=== PATIENT | male | born 1950 | race Caucasian/White ===

== ENCOUNTER 2017-03-27 10:43 | Inpatient (IN) | payer MEDICARE, OTHER ==
[~2017-03-27] VITALS: Ht 170.2 cm; Wt 125.0 kg
[2017-03-27 10:57] VITALS: BP 136/73; PULSE 83; RESP 18; TEMP 98.1; O2SAT 96
[2017-03-27 11:01] VITALS: BP 136/73; PULSE 81; RESP 22; O2SAT 96
--- NOTE | 2017-03-27 11:08 | PD ---
HPI Chief Complaint: Fall Time Seen by Provider: 11:02 Travel History International Travel<30 days: No Contact w/Intl Traveler<30days: No Traveled to known affect area: No History of Present Illness HPI 67-year-old male with history of hypertension, diabetes, presented to the emergency department for evaluation following a trip and fall that occurred approximately one hour ago. Patient was sweeping the floor when he turned, tripped, and fell landing on his right hip. He also struck his head. He did not lose consciousness. Patient reports severe right hip pain and inability to move it. This is constant. It does not radiate anywhere. Patient was unable to help himself up. Denies any nausea or vomiting. No other focal deficits or weakness. Patient has no other history to report at this time. Patient last ate around 8am today PFSH Past Medical History High Cholesterol: Yes Diabetes: Yes Patient Takes Glucophage: Yes Hypertension: Yes Social History Alcohol Use: No Tobacco Use: No Substance Use: No Allergies-Medications (Allergen,Severity, Reaction): Coded Allergies: No Known Allergies (Unverified , 03/27/17) Reported Meds & Prescriptions Reported Meds & Active Scripts Active Reported Co Q-10 (Coenzyme Q10 (Ubidecarenone)) 200 Mg Cap 200 Mg PO DAILY [Calcium Complete] 1 Tab PO DAILY Vitamin D3 (Cholecalciferol) 5,000 Unit Cap 5,000 Units PO DAILY Aspirin Adult Low Strength (Aspirin) 81 Mg Tabdr 81 Mg PO DAILY Magnesium 250 Mg Tab 250 Mg PO DAILY Rosuvastatin (Rosuvastatin Calcium) 20 Mg Tab 20 Mg PO DAILY Zetia (Ezetimibe) 10 Mg Tab 10 Mg PO DAILY Norvasc (Amlodipine Besylate) 10 Mg Tab 10 Mg PO DAILY Valsartan-Hydrochlorothiazide 160-12.5 Mg Tab 1 Tab PO DAILY Tamsulosin (Tamsulosin HCl) 0.4 Mg Cap 0.4 Mg PO HS Cymbalta DR (Duloxetine HCl) 30 Mg Capdr 90 Mg PO DAILY Take 1 capsule (30mg) with 60mg capsule for a total dose of 90mg Cymbalta DR (Duloxetine HCl) 60 Mg Capdr 90 Mg PO DAILY Take 1 capsule (60mg) with 30mg capsule for a total dose of 90mg Wellbutrin Xl 24 HR (Bupropion HCl) 150 Mg Tab 150 Mg PO DAILY Metformin (Metformin HCl) 500 Mg Tab 500 Mg PO DAILY With a meal Review of Systems Except as stated in HPI: all other systems reviewed are Neg Physical Exam Narrative GENERAL: Well-nourished elderly male patient, sitting in bed, in no acute distress. SKIN: Focused skin assessment warm/dry. Small scabbed lesions on the distal lower extremities. HEAD: Atraumatic. Normocephalic. EYES: No scleral icterus. No injection or drainage. EOMIs. PERRL ENT: No nasal bleeding or discharge. Mucous membranes pink and moist. NECK: Trachea midline. No JVD. No cervical spine tenderness to palpation. CARDIOVASCULAR: Regular rate and rhythm. No murmur appreciated. RESPIRATORY: No accessory muscle use. Coarse throughout, diminished bases, likely due to girth. Breath sounds equal bilaterally. GASTROINTESTINAL: Abdomen soft, non-tender, nondistended. Hepatic and splenic margins not palpable. MUSCULOSKELETAL: No obvious deformities. No clubbing. No cyanosis. No edema. The right lower extremity is shortened and externally rotated. Distal pulses are palpable. Cap refill is within normal limits. Patient is unable to move this hip. Attempt causes significant pain. NEUROLOGICAL: Awake and alert. No obvious cranial nerve deficits. Motor grossly within normal limits. Normal speech. PSYCHIATRIC: Appropriate mood and affect; insight and judgment normal. Data Data Last Documented VS Vital Signs Date Time Temp Pulse Resp B/P (MAP) Pulse Ox O2 Delivery O2 Flow Rate FiO2 03/27/17 11:12 86 18 136/73 (94) 97 Room Air 147/74 (98) 03/27/17 10:[address] Brain W/O Iv Contrast(Rout) (03/27/17 ) Hip, Uni(Ap&Lat) W Ap Pelvis (03/27/17 ) Electrocardiogram (03/27/17 11:05) Basic Metabolic Panel (Bmp) (03/27/17 11:05) Complete Blood Count With Diff (03/27/17 11:05) Prothrombin Time / Inr (Pt) (03/27/17 11:05) Act Partial Throm Time (Ptt) (03/27/17 11:05) Chest, Single Ap (03/27/17 11:05) Ecg Monitoring (03/27/17 11:05) Bilateral Bp Monitoring (03/27/17 11:05) Iv Access Insert/Monitor (03/27/17 11:05) Oximetry (03/27/17 11:05) Oxygen Administration (03/27/17 11:05) Sodium Chloride 0.9% Flush (Ns Flush) (03/27/17 11:15) Morphine Inj (Morphine Inj) (03/27/17 11:15) Ondansetron Inj (Zofran Inj) (03/27/17 11:15) Femur (Ap & Lat/2vws) (03/27/17 ) Hydromorphone Pf Inj (Dilaudid Pf Inj) (03/27/17 13:30) Labs Laboratory Tests Test 03/27/17 11:11 White Blood Count 8.4 TH/MM3 Red Blood Count 3.84 MIL/MM3 Hemoglobin 12.1 GM/DL Hematocrit 35.7 % Mean Corpuscular Volume 92.9 FL Mean Corpuscular Hemoglobin 31.6 PG Mean Corpuscular Hemoglobin Concent 34.0 % Red Cell Distribution Width 12.5 % Platelet Count 209 TH/MM3 Mean Platelet Volume 7.7 FL Neutrophils (%) (Auto) 75.5 % Lymphocytes (%) (Auto) 10.8 % Monocytes (%) (Auto) 8.8 % Eosinophils (%) (Auto) 4.1 % Basophils (%) (Auto) 0.8 % Neutrophils # (Auto) 6.4 TH/MM3 Lymphocytes # (Auto) 0.9 TH/MM3 Monocytes # (Auto) 0.7 TH/MM3 Eosinophils # (Auto) 0.3 TH/MM3 Basophils # (Auto) 0.1 TH/MM3 CBC Comment DIFF FINAL Differential Comment Prothrombin Time 10.6 SEC Prothromb Time International Ratio 1.0 RATIO Activated Partial Thromboplast Time 24.7 SEC Blood Urea Nitrogen 30 MG/DL Creatinine 1.68 MG/DL Random Glucose 110 MG/DL Calcium Level 9.2 MG/DL Sodium Level 139 MEQ/L Potassium Level 4.4 MEQ/L Chloride Level 104 MEQ/L Carbon Dioxide Level 26.8 MEQ/L Anion Gap 8 MEQ/L Estimat Glomerular Filtration Rate 41 ML/MIN MDM Medical Decision Making Medical Screen Exam Complete: Yes Emergency Medical Condition: Yes Medical Record Reviewed: Yes Differential Diagnosis Fracture versus sprain versus contusion versus dislocation versus minor head injury versus intracranial hemorrhage Narrative Course 67-year-old male presents to emergency department for evaluation of right hip injury following a trip and fall. Patient appears without distress. He does report significant pain of the right hip. Patient is unable to move the hip and there is shortening and external rotation of the right lower extremity. Patient also struck his head. Due to age and distracting injury, CT imaging of the brain will also be ordered. Patient is provided pain control. Last Impressions Chest X-Ray 03/27/17 1105 Signed Impressions: Service Date/Time: Monday, March 27, 2017 12:04 - CONCLUSION: No acute cardiopulmonary abnormality is identified. Mark Floyd MD Hip and Pelvis X-Ray 03/27/17 0000 Signed Impressions: Service Date/Time: Monday, March 27, 2017 12:04 - CONCLUSION: There is a displaced spiral fracture of the distal femoral diaphysis. The proximal aspect of the fracture is approximately 13 mm distal to the femoral side plate. Mark Floyd MD Head CT 03/27/17 0000 Signed Impressions: Service Date/Time: Monday, March 27, 2017 11:36 - CONCLUSION: Negative trauma study. Vasquez Flaherty MD Femur X-Ray 03/27/17 0000 Signed Impressions: Service Date/Time: Monday, March 27, 2017 12:04 - CONCLUSION: There is a displaced spiral fracture of the distal femoral diaphysis and metaphysis with displacement up to 10 mm. Mark Floyd MD Laboratory Tests Test 03/27/17 11:11 White Blood Count 8.4 TH/MM3 Red Blood Count 3.84 MIL/MM3 Hemoglobin 12.1 GM/DL Hematocrit 35.7 % Mean Corpuscular Volume 92.9 FL Mean Corpuscular Hemoglobin 31.6 PG Mean Corpuscular Hemoglobin Concent 34.0 % Red Cell Distribution Width 12.5 % Platelet Count 209 TH/MM3 Mean Platelet Volume 7.7 FL Neutrophils (%) (Auto) 75.5 % Lymphocytes (%) (Auto) 10.8 % Monocytes (%) (Auto) 8.8 % Eosinophils (%) (Auto) 4.1 % Basophils (%) (Auto) 0.8 % Neutrophils # (Auto) 6.4 TH/MM3 Lymphocytes # (Auto) 0.9 TH/MM3 Monocytes # (Auto) 0.7 TH/MM3 Eosinophils # (Auto) 0.3 TH/MM3 Basophils # (Auto) 0.1 TH/MM3 CBC Comment DIFF FINAL Differential Comment Prothrombin Time 10.6 SEC Prothromb Time International Ratio 1.0 RATIO Activated Partial Thromboplast Time 24.7 SEC Blood Urea Nitrogen 30 MG/DL Creatinine 1.68 MG/DL Random Glucose 110 MG/DL Calcium Level 9.2 MG/DL Sodium Level 139 MEQ/L Potassium Level 4.4 MEQ/L Chloride Level 104 MEQ/L Carbon Dioxide Level 26.8 MEQ/L Anion Gap 8 MEQ/L Estimat Glomerular Filtration Rate 41 ML/MIN 1253 I reviewed the x-ray imaging findings and discuss this with the patient. A call has been placed to orthopedic surgeon customer service correspondence clerk. Patient's pain is under control at this time, however he is reporting a numbness in the right distal lower extremity. Patient is able to feel me when I touch the distal affected extremity. Distal pulses remain palpable and strong. He is able to move the toes and ankle of the affected extremity. 1320 patient is requesting additional pain control at this time. I have discussed the patient with Dr. Jack Renteria's PA. Patient is to be nothing by mouth. Call has been made to the medicine team customer service correspondence clerk for admission. Diagnosis Primary Impression: Closed right femoral fracture Qualified Codes: S72.341A - Displaced spiral fracture of shaft of right femur , initial encounter for closed fracture Admitting Information Admitting Physician Requests: Admit Condition: Stable Rhianna Burnett Mar 27, 2017 11:08
[2017-03-27 11:11] VITALS: RESP 18; O2SAT 97
[2017-03-27 11:12] VITALS: BP_SYST 136; BP_SYST 147; BP_DIAS 73; BP_DIAS 74; PULSE 86; RESP 18; O2SAT 97
[2017-03-27] MEDS ORDERED: MORPHINE SULFATE 2 MG/ML INJ IV PUSH ONE (11:15)
[2017-03-27] MEDS ORDERED: ONDANSETRON HCL 4 MG/2 ML VIAL IV PUSH ONE (11:15)
[2017-03-27] MEDS: SODIUM CHLORIDE 0.9% FLUSH 10 ML FLUSH IVF PRN ×2 (11:17→22:13)
--- NOTE | 2017-03-27 11:43 | RADRPT ---
EXAM DATE/TIME: 03/27/2017 11:36 [facility] COMPARISON: No previous studies available for comparison. INDICATIONS : Cephalgia after head trauma.. RADIATION DOSE: 48.93 CTDIvol (mGy) MEDICAL HISTORY : Hypertension. Diabetes SURGICAL HISTORY : None. ENCOUNTER: Initial ACUITY: 1 day PAIN SCALE: 7/10 LOCATION: cranial TECHNIQUE: Multiple contiguous axial images were obtained of the head. Using automated exposure control and adj ustment of the mA and/or kV according to patient size, radiation dose was kept as low as reasonably a chievable to obtain optimal diagnostic quality images. DICOM format image data is available electro nically for review and comparison. FINDINGS: CEREBRUM: The ventricles are normal for age. No evidence of midline shift, mass lesion, hemorrhage or acute in farction. No extra-axial fluid collections are seen. POSTERIOR FOSSA: The cerebellum and brainstem are intact. The 4th ventricle is midline. The cerebellopontine angle i s unremarkable. EXTRACRANIAL: The visualized portion of the orbits is intact. SKULL: The calvaria is intact. No evidence of skull fracture. CONCLUSION: Negative trauma study. Vasquez Flaherty MD on March 27, 2017 at 11:40 Board Certified Radiologist. This report was verified electronically.
[2017-03-27 11:55] LABS: AUTOMATED NEUTROPHIL # 6.4 TH/MM3 (1.8-7.7); BASOPHIL # 0.1 TH/MM3 (0-0.2); BASOPHIL % 0.8 % (0.0-2.0); EOSINOPHIL # 0.3 TH/MM3 (0-0.4); EOSINOPHIL % 4.1 % (0.0-4.0); HEMATOCRIT 35.7 % (39.0-51.0); HEMOGLOBIN 12.1 GM/DL (13.0-17.0); LYMPH % 10.8 % (9.0-44.0); LYMPHOCYTE # 0.9 TH/MM3 (1.0-4.8); MEAN CELL VOLUME 92.9 FL (80.0-100.0); MEAN CORPUSCULAR HEMOGLOBIN 31.6 PG (27.0-34.0); MEAN PLATELET VOLUME 7.7 FL (7.0-11.0); MONO % 8.8 % (0.0-8.0); MONOCYTE # 0.7 TH/MM3 (0-0.9); NEUT % 75.5 % (16.0-70.0); PLATELET COUNT 209 TH/MM3 (150-450); RED BLOOD COUNT 3.84 MIL/MM3 (4.50-5.90); RED CELL DISTRIBUTION WIDTH 12.5 % (11.6-17.2); WHITE BLOOD COUNT 8.4 TH/MM3 (4.0-11.0)
[2017-03-27] MEDS ORDERED: PHENYLEPHRINE HCL 10 MG/ML VIAL IV ONE (12:00)
[2017-03-27] MEDS ORDERED: SUCCINYLCHOLINE CHLORIDE 100 MG/5 ML SYRINGE IV PUSH ONE (12:00)
[2017-03-27] MEDS ORDERED: PHENYLEPH/NS 1000 MCG/10 ML SYR IV ONE (12:00)
[2017-03-27] MEDS ORDERED: DEXAMETHASONE SOD PHOS 4 MG/ML VIAL IV ONE (12:00)
[2017-03-27] MEDS ORDERED: LIDOCAINE HCL 1% PF 5 ML SYRINGE OTHER ONE (12:00)
[2017-03-27] MEDS ORDERED: ONDANSETRON HCL 4 MG/2 ML VIAL IV ONE (12:00)
[2017-03-27] MEDS ORDERED: ePHEDrine/NS 25 MG/5 ML SYRINGE IV ONE (12:00)
[2017-03-27] MEDS ORDERED: PROPOFOL 200 MG/20 ML AMP IV ONE (12:00)
[2017-03-27] MEDS ORDERED: GLYCOPYRROLATE 1 MG/5 ML SYRINGE IV PUSH ONE (12:00)
[2017-03-27] MEDS ORDERED: ROCURONIUM INJ 50 MG/5 ML SYRINGE IV PUSH ONE (12:00)
[2017-03-27 12:06] LABS: PROTHROMBIN TIME - PATIENT 10.6 SEC (9.8-11.6)
[2017-03-27] MEDS ORDERED: EZET10 PO (12:11)
[2017-03-27] MEDS ORDERED: METF500T PO (12:11)
[2017-03-27] MEDS ORDERED: ASPI81TA16 PO (12:11)
[2017-03-27] MEDS ORDERED: CALCIUM COMPLETE PO (12:11)
[2017-03-27] MEDS ORDERED: BUPR150XL PO (12:11)
[2017-03-27] MEDS ORDERED: ROSU1TAB8 PO (12:11)
[2017-03-27] MEDS ORDERED: CHOL5000 PO (12:11)
[2017-03-27] MEDS ORDERED: TAMS0.4C4 PO (12:11)
[2017-03-27] MEDS ORDERED: VALS160T4 PO (12:11)
[2017-03-27] MEDS ORDERED: COQ1200C3 PO (12:11)
[2017-03-27] MEDS ORDERED: AMLO10 PO (12:11)
[2017-03-27] MEDS ORDERED: ESSE250T PO (12:11)
[2017-03-27] MEDS ORDERED: CYMB60CA PO (12:11)
[2017-03-27] MEDS ORDERED: CYMB30CA PO (12:11)
[2017-03-27 12:23] LABS: BICARBONATE 26.8 MEQ/L (21.0-32.0); CALCIUM 9.2 MG/DL (8.5-10.1); CREATININE 1.68 MG/DL (0.60-1.30)
--- NOTE | 2017-03-27 12:42 | RADRPT ---
EXAM DATE/TIME: 03/27/2017 12:04 [facility] COMPARISON: No previous studies available for comparison. INDICATIONS : Pain post fall today. Pre op for femur fracture. MEDICAL HISTORY : Hypercholesterolemia. Hypertension Diabetic. SURGICAL HISTORY : ORIF right hip. ENCOUNTER: Initial ACUITY: 1 day PAIN SCORE: 0/10 LOCATION: chest FINDINGS: Single AP view of the chest demonstrates cardiac silhouette size at the upper limits for normal. Mult iple EKG lines overlie the patient. Lungs are underinflated. No effusion, consolidation, or pneumotho rax is identified. The bones and soft tissues demonstrate no acute finding. CONCLUSION: No acute cardiopulmonary abnormality is identified. Mark Floyd MD on March 27, 2017 at 12:38 Board Certified Radiologist. This report was verified electronically.
--- NOTE | 2017-03-27 12:43 | RADRPT ---
EXAM DATE/TIME: 03/27/2017 12:04 [facility] COMPARISON: No previous studies available for comparison. INDICATIONS : Right hip pain post fall. MEDICAL HISTORY : Hypertension. Hypercholesterolemia. Diabetic. SURGICAL HISTORY : ORIF right hip. ENCOUNTER: Initial ACUITY: 1 day PAIN SCORE: 10/10 LOCATION: Right hip FINDINGS: AP view of the pelvis with 4 views of the right femur and hip joint demonstrate undermineralized bone s. There is a lateral proximal femoral side plate with multiple interlocking screws. In the distal fe moral diaphysis there is a displaced spiral fracture with approximately 10 mm of displacement. The fr acture line does not clearly extend to the knee joint. The proximal aspect of the fracture begins 13 mm distal to the hardware. There is moderate right hip joint osteoarthritis. Pelvic bones and left pr oximal femur demonstrate no acute finding. CONCLUSION: There is a displaced spiral fracture of the distal femoral diaphysis. The proximal aspect of the frac ture is approximately 13 mm distal to the femoral side plate. Mark Floyd MD on March 27, 2017 at 12:39 Board Certified Radiologist. This report was verified electronically.
--- NOTE | 2017-03-27 12:45 | RADRPT ---
EXAM DATE/TIME: 03/27/2017 12:04 [facility] COMPARISON: No previous studies available for comparison. INDICATIONS : Right femur pain post fall. MEDICAL HISTORY : Hypertension. Hypercholesterolemia. Diabetic. SURGICAL HISTORY : ORIF Right hip. ENCOUNTER: Initial ACUITY: 1 day PAIN SCORE: 10/10 LOCATION: Right femur. FINDINGS: 6 views of the right femur demonstrate an oblique displaced spiral fracture of the distal femoral tej physis and metaphysis. There is up to 10 mm of displacement of the distal fragment. The proximal aspe ct of the fracture originates approximately 13 mm distal to the lateral femoral sideplate. There is a lateral femoral sideplate with multiple interlocking screws. No hardware failure or loosening is augustine ntified. No soft tissue abnormality is identified. CONCLUSION: There is a displaced spiral fracture of the distal femoral diaphysis and metaphysis with displacement up to 10 mm. Mark Floyd MD on March 27, 2017 at 12:41 Board Certified Radiologist. This report was verified electronically.
[2017-03-27] MEDS ORDERED: HYDROmorphone HCL PF 2 MG/ML VIAL IV PUSH ONE (13:30)
--- NOTE | 2017-03-27 13:40 | PD ---
Data Data Last Documented VS Vital Signs Date Time Temp Pulse Resp B/P (MAP) Pulse Ox O2 Delivery O2 Flow Rate FiO2 03/27/17 11:12 86 18 136/73 (94) 97 Room Air 147/74 (98) 03/27/17 10:[address] Brain W/O Iv Contrast(Rout) (03/27/17 ) Hip, Uni(Ap&Lat) W Ap Pelvis (03/27/17 ) Electrocardiogram (03/27/17 11:05) Basic Metabolic Panel (Bmp) (03/27/17 11:05) Complete Blood Count With Diff (03/27/17 11:05) Prothrombin Time / Inr (Pt) (03/27/17 11:05) Act Partial Throm Time (Ptt) (03/27/17 11:05) Chest, Single Ap (03/27/17 11:05) Ecg Monitoring (03/27/17 11:05) Bilateral Bp Monitoring (03/27/17 11:05) Iv Access Insert/Monitor (03/27/17 11:05) Oximetry (03/27/17 11:05) Oxygen Administration (03/27/17 11:05) Sodium Chloride 0.9% Flush (Ns Flush) (03/27/17 11:15) Morphine Inj (Morphine Inj) (03/27/17 11:15) Ondansetron Inj (Zofran Inj) (03/27/17 11:15) Femur (Ap & Lat/2vws) (03/27/17 ) Hydromorphone Pf Inj (Dilaudid Pf Inj) (03/27/17 13:30) Labs Laboratory Tests Test 03/27/17 11:11 White Blood Count 8.4 TH/MM3 Red Blood Count 3.84 MIL/MM3 Hemoglobin 12.1 GM/DL Hematocrit 35.7 % Mean Corpuscular Volume 92.9 FL Mean Corpuscular Hemoglobin 31.6 PG Mean Corpuscular Hemoglobin Concent 34.0 % Red Cell Distribution Width 12.5 % Platelet Count 209 TH/MM3 Mean Platelet Volume 7.7 FL Neutrophils (%) (Auto) 75.5 % Lymphocytes (%) (Auto) 10.8 % Monocytes (%) (Auto) 8.8 % Eosinophils (%) (Auto) 4.1 % Basophils (%) (Auto) 0.8 % Neutrophils # (Auto) 6.4 TH/MM3 Lymphocytes # (Auto) 0.9 TH/MM3 Monocytes # (Auto) 0.7 TH/MM3 Eosinophils # (Auto) 0.3 TH/MM3 Basophils # (Auto) 0.1 TH/MM3 CBC Comment DIFF FINAL Differential Comment Prothrombin Time 10.6 SEC Prothromb Time International Ratio 1.0 RATIO Activated Partial Thromboplast Time 24.7 SEC Blood Urea Nitrogen 30 MG/DL Creatinine 1.68 MG/DL Random Glucose 110 MG/DL Calcium Level 9.2 MG/DL Sodium Level 139 MEQ/L Potassium Level 4.4 MEQ/L Chloride Level 104 MEQ/L Carbon Dioxide Level 26.8 MEQ/L Anion Gap 8 MEQ/L Estimat Glomerular Filtration Rate 41 ML/MIN MDM Supervised Visit with HENRI: Yes Narrative Course The history, exam, and medical decision-making in the associated mid-level provider note were completed with my assistance. I reviewed and agree with the findings presented. I attest that I had a [id number] encounter with the patient on the same day, and personally performed and documented my assessment and findings in the medical record. *My assessment and Findings: 67-year-old man, fall, femur fracture. History of hardware in the right hip. Looks well. Will admit to medicine, o orthopedics to see. Diagnosis Primary Impression: Closed right femoral fracture Qualified Codes: S72.341A - Displaced spiral fracture of shaft of right femur , initial encounter for closed fracture Condition: Stable Jc Adame MD Mar 27, 2017 13:40
[2017-03-27] MEDS ORDERED: DEXTROSE 50% IN WATER 50 ML VIAL(D50) IV PUSH PRN (14:00)
[2017-03-27] MEDS ORDERED: SODIUM CHLOR 0.9% 1000 ML INJ 1,000 ML IV SCH (14:00)
[2017-03-27] MEDS ORDERED: GLUCAGON 1 MG/ML VIAL OTHER PRN (14:00)
--- NOTE | 2017-03-27 14:12 | HHI.HP ---
[facility] Service [facility] Primary Care Physician No Primary Care Physician Admission Diagnosis r femur fracture Diagnoses: (1) Closed right femoral fracture Diagnosis: Principal Chief Complaint: pain to the right lower extremity after a fall Travel History International Travel<30 Days: No Contact w/Intl Traveler <30 Da: No Traveled to Known Affected Are: No History of Present Illness patient is a 67 y/o male who presented to ER after he fell earlier. he says that he was sweeping the floor when he tripped and fell-after which he started to have worsening pain to the right lower extremity. he denies any prodromal symptoms before the fall and there's no report of syncopal episode. he denies any abdominal pain, chest pain, nausea or dizziness. Review of Systems Musculoskeletal: COMPLAINS OF: Joint pain (right leg) Past Family Social History Past Medical History diabetes mellitus/ hypertension Past Surgical History appendectomy/ hip surgery. Reported Medications Co Q-10 (Coenzyme Q10 (Ubidecarenone)) 200 Mg Cap 200 Mg PO DAILY [Calcium Complete] 1 Tab PO DAILY Vitamin D3 (Cholecalciferol) 5,000 Unit Cap 5,000 Units PO DAILY Aspirin Adult Low Strength (Aspirin) 81 Mg Tabdr 81 Mg PO DAILY Magnesium 250 Mg Tab 250 Mg PO DAILY Rosuvastatin (Rosuvastatin Calcium) 20 Mg Tab 20 Mg PO DAILY Zetia (Ezetimibe) 10 Mg Tab 10 Mg PO DAILY Norvasc (Amlodipine Besylate) 10 Mg Tab 10 Mg PO DAILY Valsartan-Hydrochlorothiazide 160-12.5 Mg Tab 1 Tab PO DAILY Tamsulosin (Tamsulosin HCl) 0.4 Mg Cap 0.4 Mg PO HS Cymbalta DR (Duloxetine HCl) 30 Mg Capdr 90 Mg PO DAILY Take 1 capsule (30mg) with 60mg capsule for a total dose of 90mg Cymbalta DR (Duloxetine HCl) 60 Mg Capdr 90 Mg PO DAILY Take 1 capsule (60mg) with 30mg capsule for a total dose of 90mg Wellbutrin Xl 24 HR (Bupropion HCl) 150 Mg Tab 150 Mg PO DAILY Metformin (Metformin HCl) 500 Mg Tab 500 Mg PO DAILY With a meal Allergies: Coded Allergies: No Known Allergies (Unverified , 03/27/17) Active Ordered Medications Inpatient Medications Dextrose (D50w (Vial) Inj) 50 ml UNSCH PRN IV PUSH HYPOGLYCEMIA-SEE COMMENTS; Start 03/27/17 at 14:00 Glucagon (Glucagon Inj) 1 mg UNSCH PRN OTHER HYPOGLYCEMIA-SEE COMMENTS; Start 03/27/17 at 14:00 Hydromorphone HCl (Dilaudid Pf Inj) 1 mg ONCE ONCE IV PUSH Last administered on 03/27/17at 13:27; Start 03/27/17 at 13:30; Stop 03/27/17 at 13:31; Status DC Insulin Aspart (NovoLOG SUPPLEMENTAL SCALE) 1 ACHS SLIDING SCALE SQ ; Start 03/27/17 at 17:00 Morphine Sulfate (Morphine Inj) 4 mg ONCE ONCE IV PUSH Last administered on 03/27/17at 11:17; Start 03/27/17 at 11:15; Stop 03/27/17 at 11:16; Status DC Ondansetron HCl (Zofran Inj) 4 mg ONCE ONCE IV PUSH Last administered on at 11:17; Start 03/27/17 at 11:15; Stop 03/27/17 at 11:16; Status DC Sodium Chloride 1,000 ml @ 100 mls/hr Q10H IV ; Start 03/27/17 at 14:00 Sodium Chloride (NS Flush) 2 ml UNSCH PRN IVF FLUSH AFTER USING IV ACCESS Last administered on 03/27/17at 11:17; Start 03/27/17 at 11:15 Family History not relevant to this admission. Social History no smoking or drinking. Physical Exam Vital Signs Vital Signs Date Time Temp Pulse Resp B/P (MAP) Pulse Ox O2 Delivery O2 Flow Rate FiO2 03/27/17 11:12 86 18 136/73 (94) 97 Room Air 147/74 (98) 03/27/17 11:11 97 Room Air 03/27/17 11:11 18 97 Room Air 03/27/17 11:01 81 22 136/73 (94) 96 Room Air 03/27/17 11:01 76 22 96 Room Air 03/27/17 10:57 98.1 83 18 136/73 (94) 96 Physical Exam GENERAL: This is a well-nourished, well-developed patient, in no apparent distress. SKIN: No rashes, ecchymoses or lesions. Cool and dry. HEAD: Atraumatic. Normocephalic. No temporal or scalp tenderness. EYES: Pupils equal round and reactive. Extraocular motions intact. No scleral icterus. No injection or drainage. ENT: Nose without bleeding, purulent drainage or septal hematoma. Throat without erythema, tonsillar hypertrophy or exudate. Uvula midline. Airway patent. NECK: Trachea midline. No JVD or lymphadenopathy. Supple, nontender, no meningeal signs. CARDIOVASCULAR: Regular rate and rhythm without murmurs, gallops, or rubs. RESPIRATORY: Clear to auscultation. Breath sounds equal bilaterally. No wheezes , rales, or rhonchi. GASTROINTESTINAL: Abdomen soft, non-tender, nondistended. No hepato-splenomegaly , or palpable masses. No guarding. MUSCULOSKELETAL: Extremities without clubbing, cyanosis, or edema. No joint tenderness, effusion, or edema noted. No calf tenderness. Negative Homans sign bilaterally. NEUROLOGICAL: Awake and alert. Cranial nerves II through XII intact. Motor and sensory grossly within normal limits. Five out of 5 muscle strength in all muscle groups. Normal speech. Laboratory Laboratory Tests Test 03/27/17 11:11 White Blood Count 8.4 Red Blood Count 3.84 Hemoglobin 12.1 Hematocrit 35.7 Mean Corpuscular Volume 92.9 Mean Corpuscular Hemoglobin 31.6 Mean Corpuscular Hemoglobin Concent 34.0 Red Cell Distribution Width 12.5 Platelet Count 209 Mean Platelet Volume 7.7 Neutrophils (%) (Auto) 75.5 Lymphocytes (%) (Auto) 10.8 Monocytes (%) (Auto) 8.8 Eosinophils (%) (Auto) 4.1 Basophils (%) (Auto) 0.8 Neutrophils # (Auto) 6.4 Lymphocytes # (Auto) 0.9 Monocytes # (Auto) 0.7 Eosinophils # (Auto) 0.3 Basophils # (Auto) 0.1 CBC Comment DIFF FINAL Differential Comment Prothrombin Time 10.6 Prothromb Time International Ratio 1.0 Activated Partial Thromboplast Time 24.7 Blood Urea Nitrogen 30 Creatinine 1.68 Random Glucose 110 Calcium Level 9.2 Sodium Level 139 Potassium Level 4.4 Chloride Level 104 Carbon Dioxide Level 26.8 Anion Gap 8 Estimat Glomerular Filtration Rate 41 Result Diagram: 03/27/17 1111 03/27/17 1111 Imaging Last Impressions Chest X-Ray 03/27/17 1105 Signed Impressions: Service Date/Time: Monday, March 27, 2017 12:04 - CONCLUSION: No acute cardiopulmonary abnormality is identified. Mark Floyd MD Hip and Pelvis X-Ray 03/27/17 0000 Signed Impressions: Service Date/Time: Monday, March 27, 2017 12:04 - CONCLUSION: There is a displaced spiral fracture of the distal femoral diaphysis. The proximal aspect of the fracture is approximately 13 mm distal to the femoral side plate. Mark Floyd MD Head CT 03/27/17 0000 Signed Impressions: Service Date/Time: Monday, March 27, 2017 11:36 - CONCLUSION: Negative trauma study. Vasquez Flaherty MD Femur X-Ray 03/27/17 0000 Signed Impressions: Service Date/Time: Monday, March 27, 2017 12:04 - CONCLUSION: There is a displaced spiral fracture of the distal femoral diaphysis and metaphysis with displacement up to 10 mm. Mark Floyd MD EKG; sinus rhythm with RBBB and occasional PVC's. Caprini VTE Risk Assessment Caprini VTE Risk Assessment: Mod/High Risk (score >= 2) Caprini Risk Assessment Model Point Value = 1 Point Value = 2 Point Value = 3 Point Value = 5 Age 41-60 Minor surgery BMI > 25 kg/m2 Swollen legs Varicose veins or History of unexplained or recurrent spontaneous Oral contraceptives or hormone replacement Sepsis (< 1 month) Serious lung disease, including pneumonia (< 1 month) Abnormal pulmonary function Acute myocardial infarction Congestive heart failure (< 1 month) History of inflammatory bowel disease Medical patient at bed rest Age 61-74 Arthroscopic surgery Major open surgery (> 45 min) Laparoscopic surgery (> 45 min) Malignancy Confined to bed (> 72 hours) Immobilizing plaster cast Central venous access Age >= 75 History of VTE Family history of VTE Factor V Leiden Prothrombin [id number] Lupus anticoagulant Anticardiolipin antibodies Elevated serum homocysteine Heparin-induced thrombocytopenia Other congenital or acquired thrombophilia Stroke (< 1 month) Elective arthroplasty Hip, pelvis, or leg fracture Acute spinal cord injury (< 1 month) Prophylaxis Regimen Total Risk Factor Score Risk Level Prophylaxis Regimen 0-1 Low Early ambulation 2 Moderate Order ONE of the following: *Sequential Compression Device (SCD) *Heparin 5000 units SQ BID 3-4 Higher Order ONE of the following medications: *Heparin 5000 units SQ TID *Enoxaparin/Lovenox 40 mg SQ daily (WT < 150 kg, CrCl > 30 mL/min) *Enoxaparin/Lovenox 30 mg SQ daily (WT < 150 kg, CrCl > 10-29 mL/min) *Enoxaparin/Lovenox 30 mg SQ BID (WT < 150 kg, CrCl > 30 mL/min) AND/OR *Sequential Compression Device (SCD) 5 or more Highest Order ONE of the following medications: *Heparin 5000 units SQ TID (Preferred with Epidurals) *Enoxaparin/Lovenox 40 mg SQ daily (WT < 150 kg, CrCl > 30 mL/min) *Enoxaparin/Lovenox 30 mg SQ daily (WT < 150 kg, CrCl > 10-29 mL/min) *Enoxaparin/Lovenox 30 mg SQ BID (WT < 150 kg, CrCl > 30 mL/min) AND *Sequential Compression Device (SCD) Assessment and Plan Assessment and Plan A/P - fall with right femoral fracture NPO for now- consulted ortho- continue pain control. -diabetes mellitus; accu-check with SSI- hold metformin. -hypertension; resume norvasc- hold Valsartan/HCTZ- will monitor and adjust the regimen as needed. -renal insufficiency with unknown duration- start on IV fluid and monitor the renal functio; BMP tomorrow. -DVT prophylaxis; pending ortho evaluation/ intervention. Discussed Condition With ER physician and the patient. Physician Certification 2 Midnight Certification Type: Admission for Inpatient Services Order for Inpatient Services The services are ordered in accordance with Medicare regulations or non- Medicare payer requirements, as applicable. In the case of services not specified as inpatient-only, they are appropriately provided as inpatient services in accordance with the 2-midnight benchmark. Estimated LOS (days): 3 days is the estimated time the patient will need to remain in the hospital, assuming treatment plan goals are met and no additional complications. Post-Hospital Plan: Not yet determined Problem Qualifiers (1) Closed right femoral fracture: Qualified Codes: S72.341A - Displaced spiral fracture of shaft of right femur, initial encounter for closed fracture Gucci Isaac MD Mar 27, 2017 14:12
[2017-03-27] MEDS ORDERED: ACETAMINOPHEN 325 MG TAB PO PRN (14:15)
[2017-03-27] MEDS ORDERED: ONDANSETRON HCL 4 MG/2 ML VIAL IV PUSH PRN (14:15)
[2017-03-27] MEDS ORDERED: MORPHINE SULFATE 2 MG/ML INJ IV PUSH PRN (14:15)
[2017-03-27] MEDS ORDERED: GENTAMICIN SULFATE 80 MG/2 ML VIAL ONE (14:55)
[2017-03-27] MEDS ORDERED: ACETAMINOPHEN 1000 MG/100 ML 100 ML IV ONE (14:57)
[2017-03-27] MEDS ORDERED: ARTIFICIAL TEARS OPTH OINT 3.5 APPLIC/3.5 GM TUBO ONE (15:09)
[2017-03-27] MEDS ORDERED: VANCOMYCIN HCL 1000 MG VIAL ONE (15:56)
[2017-03-27] MEDS ORDERED: ceFAZolin 2 GM PREMIX 50 ML ONE (15:56)
--- NOTE | 2017-03-27 16:29 | MB ---
cc: LEE BELLO M.D. DATE OF CONSULTATION: 03/27/2017 REASON FOR CONSULTATION: Right distal femoral shaft fracture. HISTORY The patient is a 67-year-old man who came to the emergency room after having a mechanical fall. The patient was sweeping the floor and he tripped and fell, he was unable to ambulate had severe pain and deformity about the leg. The patient denies any numbness or tingling raining down the leg. He was admitted to the hospital after having x-ray showing a distal femur fracture. Of note the patient had a previous right hip fracture which was treated 30 years ago with an open reduction internal fixation. The patient was able to ambulate well prior to this new injury. The patient denies any loss of consciousness. PAST MEDICAL HISTORY: Medical history is positive a diabetes hypertension. PAST SURGICAL HISTORY As above plus appendectomy. MEDICATIONS See the chart note that he does take Aspirin and he takes oral diabetic medicines. ALLERGIES NO KNOWN DRUG ALLERGIES SOCIAL HISTORY He does not smoke or drink alcohol. FAMILY HISTORY Noncontributory. PHYSICAL EXAMINATION: VITAL SIGNS: The patient's temperature is 98.1, pulse is 83, respirations 18, blood pressure 136/73. IN GENERAL: The patient is awake, alert and oriented x3. He is in very minimal distress. He has normal affect insight and judgment. Patient is a morbidly obese. HEAD, EYES, EARS, NOSE, AND THROAT: His head is atraumatic. Oropharynx is moist. Extraocular muscles intact. HEART: Heart is regular rate and rhythm LUNGS: Has normal symmetric chest wall elevation with no dyspnea or audible wheeze. BACK: The patient's back is nontender. JOINTS: Bilateral shoulders, elbows and wrist have good range of motion actively. ABDOMEN: Soft and nontender with obesity. EXTREMITIES: The right lower extremity shortened and rotated. There is mild to moderate swelling of the thigh as a well-healed lateral incision. He has excoriations of the bilateral lower extremities of at least a moderate degree which were multiple which he describes from scratching due being up in cold weather recently he can move the toes on both feet actively with normal sensation about both feet is 2+ dorsalis pedis pulse, bilateral lower extremities. LABORATORY FINDINGS: Laboratory studies shows a white cell count of 8.4, hematocrit 35.7, platelets of 209, creatinine is elevated at 1.68, glucose 110. INR yesterday was 1.0. RADIOLOGIC: X-rays reviewed the images and reports on the right femur in the right hip shows the patient has a blade plate to for a previous healed subtrochanteric femur fracture with multiple screws going into a long plate laterally. There is a long oblique fracture going just distal from the tip of the plate down towards the supracondylar region. There is significant rotation and displacement. There was a head CT which had looked at the report which showed no acute trauma. IMPRESSION: 1. Right distal femoral shaft fracture rotated and displaced, trauma periprosthetic. 2. Right hip previous subtrochanteric femur fracture with a well-healed with a long blade plate going down the femoral shaft. 3. Morbid obesity with history of diabetes. DECISION MAKING: We discussed diagnosis in detail. We discussed treatment options. I do feel that urgent surgical management is necessary nonoperative management will have significant morbidity and even potentially mortality associated with it without surgery. The patient would likely not be able to walk functionally again the patient would have very high risk of developing DVT, pulmonary embolus, bed sores, pneumonia and . I did discuss with the patient that surgery is fairly complicated given the fact that he has this previous hardware in there, it really does limited as far as options for surgery and does make surgery more complicated in that may need to remove hardware that was placed previously. Which could be, some of the screws or all the screws or potentially all the screws and the plate and the plate has been in now for 30 years. We discussed that there are times a fixation including intramedullary maverick fixation versus further plates and screws and will make this determination of exactly how to proceed intraoperatively. The patient says that the risks of surgery include on to injury levels bleeding, infection, infection, inability to ambulate, loss range of motion associated joints, DVT, pulmonary was pneumonia and . The patient was performed with surgical management. All questions have been answered. MD BENJAMÍN Zhou/candice /3:57 PM /4:16 PM
[2017-03-27] MEDS ORDERED: TRANEXAMIC ACID INJ 1,000 MG/10 ML AMP ONE ×2 (16:38→16:41)
[2017-03-27] MEDS ORDERED: ALBUMIN 5% INJ 500 ML IV ONE (18:11)
[2017-03-27] MEDS ORDERED: SUGAMMADEX SODIUM 200 MG/2 ML VIAL IV PUSH ONE (18:13)
[2017-03-27] MEDS ORDERED: DEXT 5%-NACL 0.45% 1000 ML INJ 1,000 ML IV SCH (18:59)
[2017-03-27] MEDS ORDERED: Post-op Orders (for Pharmacy) XX ONE (19:00)
[2017-03-27] MEDS ORDERED: diphenhydrAMINE HCL 25 MG CAP PO PRN (19:00)
[2017-03-27] MEDS ORDERED: NALOXONE HCL 0.4 MG/ML AMP IV PUSH PRN (19:00)
[2017-03-27] MEDS ORDERED: MISCELLANEOUS NURSING INFORMATION XX PRN (19:00)
[2017-03-27] MEDS ORDERED: MISCELLANEOUS PHARMACY INFORMATION XX ONE (19:00)
[2017-03-27] MEDS ORDERED: ONDANSETRON HCL 4 MG/2 ML VIAL IVP PRN (19:00)
--- NOTE | 2017-03-27 19:10 | PD.OP ---
cc: Rj Santiago MD Operative Report Date of Surgery: Mar 27, 2017 Preoperative Diagnosis: Right femur distal supracondylar femur fracture, extra-articular. Right femur retained hardware, long blade plate for healed subtrochanteric fracture Postoperative Diagnosis: Same Procedure: Right distal femur supracondylar femur open reduction and internal fixation plus intramedullary stabilization. Right femur removal of implant deep. Anesthesia: Gen. Surgeon: Rj Santiago Outsole Cementer Machine(s): MARY Mota The surgical procedure was assisted by my Advanced Registered Nurse Practitioner. My OPERATORS SCHOOL MANAGER presence was necessary throughout this case for the manipulation and positioning of the surgical extremity. My OPERATORS SCHOOL MANAGER was assisting me throughout the duration of this procedure. The skill set of an Advance Registered Nurse Practitioner was medically necessary to complete this procedure. During the surgical case, the radiologic technician was working at the back table and the Advance Registered Nurse Practitioner was directly assisting me. Operation and Findings: Implants: Synthes tibal nail, size: Synthes, retrograde femur nail 12 x 340. Synthes 4 cables Estimated blood loss: 600 cc The patient received intravenous vancomycin and Ancef. After the appropriate anesthesia was administered, the patient was prepped and draped in the supine position in the usual sterile fashion. Skin assessment showed several excoriations around the lateral aspect of the femur. There was mild to moderate swelling noted to the leg, with no evidence of compartment syndrome. Lateral incision was made on the femur which was then incorporated into the previous lateral incision more proximally. We dissected down to deep fascia and incised the iliotibial band longitudinally. We identified the vastus lateralis muscle which was reflected anteriorly. There was quite a bit of hemorrhage and hematoma in the distal vastus lateralis. We identified the fracture site and cleaned off hematoma. We identified the helical blade plate laterally, more proximally. There was some osseous overgrowth which was removed. We irrigated the fracture. We anatomically reduced the fracture. We placed a clamp to hold the anatomic. We then placed 3 Synthes cables around the fracture which was oblique in nature which held the fracture in anatomic. Note that the supracondylar femur fracture was extra-articular. We decided that we needed to augment this fixation with intramedullary device. We therefore removed 7 deep screws from the blade plate. All of the screws had excellent purchase. No signs of infection was noted about the previous surgery. We made standard incision through the skin over the knee and then incised longitudinally through the patella tendon and the capsule. We placed a threaded guidewire distally through the supracondylar region. We distally reamed. We then placed a ball-tipped guidewire up to the proximal femur. We sequentially reamed up to a size 13 to get good cortical chatter. We measured the nail to make sure that the tip of it would be below the previous plate plate. We then placed the nail into position and buried this to the appropriate level. We secured the nail distally with 3 screws. Proximally we secured the nail with a single screw using perfect [place] technique. We decided to place a cerclage wire around the blade plate construct. We did this because we removed all of the screws that had locked it to the femur. When we had examined the blade plate there was no instability whatsoever. But, we thought that by adding a cerclage wire this fluid significantly reduce the chance of that hardware loosening in the future. We irrigated the wounds including intra-articular at the knee. We placed a deep drain in the lateral aspect of the femur. This was deep to the muscle. We closed the patellar tendon with 0 Vicryl. We closed the IT band with #1 Vicryl. We closed the remaining skin with 2-0 Vicryl and yecenia. Dressings were applied. The postoperative plan is for toe-touch weightbearing on the right lower extremity. Chemical DVT prophylaxis will be performed with Lovenox followed by aspirin. Rj Santiago MD Mar 27, 2017 19:10
[2017-03-27] MEDS ORDERED: ASPI-146 PO (19:12)
[2017-03-27] MEDS ORDERED: ENOX40IN SQ (19:12)
[2017-03-27] MEDS ORDERED: HYDR-3583 PO (19:12)
--- NOTE | 2017-03-27 19:13 | RADRPT ---
EXAM DATE/TIME: 03/27/2017 18:29 [facility] COMPARISON: FEMUR RIGHT (AP & LAT/2VWS), March 27, 2017, 12:04. EXTERNAL COMPARISON : INDICATIONS : ORIF rt femur. MEDICAL HISTORY : None. SURGICAL HISTORY : None. ENCOUNTER: Subsequent ACUITY: 1 day PAIN SCORE: Non-responsive. LOCATION: Right Femur FINDINGS: The patient is status post ORIF of right femur fracture with hardware in good position. CONCLUSION: Status post ORIF of right femur fracture with hardware in good position. Pj Merchant MD on March 27, 2017 at 19:09 Board Certified Radiologist. This report was verified electronically.
[2017-03-27] MEDS ORDERED: ENOX40P SQ (19:14)
[2017-03-27] MEDS ORDERED: DO NOT ADM ANY ANTICOAGULANT DRUGS PRN (20:02)
[2017-03-27] MEDS ORDERED: MIDAZOLAM HCL 2 MG/2 ML VIAL ONE (20:13)
[2017-03-27] MEDS ORDERED: *morphine SULFATE 4 MG/ML PERIprocedure ONLY ONE (20:59)
[2017-03-27] MEDS: INSULIN ASPART SUPPLEMENTAL SCALE SQ SCH (21:00)
[2017-03-27] MEDS: SODIUM CHLOR 0.9% 1000 ML INJ 1,000 ML IV SCH (21:30)
[2017-03-27 21:40] VITALS: BP 103/53; PULSE 74; RESP 18; TEMP 97.1; O2SAT 94
[2017-03-27] MEDS: TAMSULOSIN HCL 0.4 MG CAP PO SCH (22:13)
[2017-03-27] MEDS: ACETAMINOPHEN/HYDROcodone 325 MG/10 MG TAB PO PRN (22:13)
[2017-03-27] MEDS: DOCUSATE SODIUM 50 MG/SENNA 8.6 MG TAB PO SCH (22:13)
[2017-03-28 00:05] VITALS: BP 107/59; PULSE 88; RESP 18; TEMP 97.4; O2SAT 94
[2017-03-28] MEDS: ACETAMINOPHEN/HYDROcodone 325 MG/10 MG TAB PO PRN ×3 (03:38→18:10)
[2017-03-28 04:00] VITALS: BP 115/63; PULSE 78; RESP 18; TEMP 97.4; O2SAT 96
[2017-03-28] MEDS: SODIUM CHLOR 0.9% 1000 ML INJ 1,000 ML IV SCH ×2 (05:02→18:00)
[2017-03-28 05:35] LABS: AUTOMATED NEUTROPHIL # 10.8 TH/MM3 (1.8-7.7); BASOPHIL % 0.3 % (0.0-2.0); HEMATOCRIT 25.7 % (39.0-51.0); HEMOGLOBIN 8.7 GM/DL (13.0-17.0); LYMPHOCYTE # 0.5 TH/MM3 (1.0-4.8); MEAN CELL VOLUME 93.4 FL (80.0-100.0); MEAN CORPUSCULAR HEMOGLOBIN 31.6 PG (27.0-34.0); MEAN CORPUSCULAR HGB CONC 33.8 % (32.0-36.0); MONO % 5.6 % (0.0-8.0); MONOCYTE # 0.7 TH/MM3 (0-0.9); NEUT % 90.1 % (16.0-70.0); PLATELET COUNT 171 TH/MM3 (150-450); RED BLOOD COUNT 2.76 MIL/MM3 (4.50-5.90); RED CELL DISTRIBUTION WIDTH 12.5 % (11.6-17.2)
[2017-03-28 05:53] LABS: BICARBONATE 27.7 MEQ/L (21.0-32.0); CALCIUM 7.7 MG/DL (8.5-10.1); CREATININE 1.78 MG/DL (0.60-1.30)
[2017-03-28 08:00] VITALS: BP 111/62; PULSE 83; RESP 16; TEMP 98.3; O2SAT 96
[2017-03-28] MEDS: INSULIN ASPART SUPPLEMENTAL SCALE SQ SCH ×4 (08:00→21:11)
[2017-03-28] MEDS: DULoxetine HCl DR 30 MG CAP PO SCH (08:30)
[2017-03-28] MEDS: buPROPion HCL 150 MG SUSTAINED RELEASE TAB PO SCH ×2 (08:30→20:56)
[2017-03-28] MEDS: ATORVASTATIN 40 MG TAB PO SCH (08:30)
[2017-03-28] MEDS: MULTIVITAMINS/MINERALS THERAPEUTIC TAB PO SCH (08:30)
[2017-03-28] MEDS: DOCUSATE SODIUM 50 MG/SENNA 8.6 MG TAB PO SCH ×2 (08:30→20:56)
[2017-03-28] MEDS: CHOLECALCIFEROL (VIT D3) 5000 UNIT CAP PO SCH (08:31)
[2017-03-28] MEDS: EZETIMIBE 10 MG TAB PO SCH (08:31)
[2017-03-28] MEDS ORDERED: DULoxetine HCl DR 60 MG CAP PO SCH (09:00)
[2017-03-28] MEDS ORDERED: buPROPion HCL 150 MG EXTENDED RELEASE TAB PO SCH (09:00)
--- NOTE | 2017-03-28 09:36 | PD.ORT.PN ---
Subjective Subjective Remarks min pain, sitting in chair comfortably Objective Vitals Vital Signs Date Time Temp Pulse Resp B/P (MAP) Pulse Ox O2 Delivery O2 Flow Rate FiO2 03/28/17 04:38 20 03/28/17 04:00 97.4 78 18 115/63 (80) 96 03/28/17 00:05 97.4 88 18 107/59 (75) 94 03/27/17 23:13 20 03/27/17 21:40 97.1 74 18 103/53 (70) 94 03/27/17 21:15 72 17 109/56 (73) 100 Nasal Cannula 2 03/27/17 21:00 72 13 107/61 (76) 100 Nasal Cannula 2 03/27/17 20:45 70 15 108/62 (77) 100 Nasal Cannula 4 03/27/17 20:30 70 16 99/59 (72) 98 Nasal Cannula 4 03/27/17 20:15 71 15 83/50 (61) 94 Nasal Cannula 4 03/27/17 20:05 98.2 74 12 95/51 (66) 98 Nasal Cannula 4 03/27/17 15:51 97.5 77 18 123/66 (85) 95 03/27/17 15:34 03/27/17 11:12 86 18 136/73 (94) 97 Room Air 147/74 (98) 03/27/17 11:11 97 Room Air 03/27/17 11:11 18 97 Room Air 03/27/17 11:01 81 22 136/73 (94) 96 Room Air 03/27/17 11:01 76 22 96 Room Air 03/27/17 10:57 98.1 83 18 136/73 (94) 96 I/O 03/27/17 03/27/17 03/27/17 03/28/17 03/28/17 03/28/17 07:00 15:00 23:00 07:00 15:00 23:00 Intake Total 2575 ml 933 ml Output Total 1230 ml 830 ml Balance 1345 ml 103 ml Intake Oral 75 ml IV Total 933 ml Albumin 500 ml Other 2000 ml Output Urine Total 600 ml 750 ml Drainage Total 30 ml 80 ml Estimated Blood Loss 600 ml Bladder Scan Volume Amount 291 ml # Voids 0 # Bowel Movements 0 Result Diagram: 03/28/17 0425 03/28/17 0425 Other Results Laboratory Tests Test 03/27/17 11:11 Prothromb Time International Ratio 1.0 RATIO Prothrombin Time 10.6 SEC (9.8-11.6) Imaging Last 24 hours Impressions Chest X-Ray 03/27/17 1105 Signed Impressions: Service Date/Time: Monday, March 27, 2017 12:04 - CONCLUSION: No acute cardiopulmonary abnormality is identified. Mark Floyd MD Objective Remarks R leg dressed (clean) and CKS applied moves all toes well, BCR *5 +bloody drainage from drain Assessment & Plan Assessment and Plan POD #1 s/p R femur ORIF/IMN TTWB RLE Lovenox cont drain until tomorrow dressing change tomorrow Likely SNF 2/4 or 2/ Rj Santiago MD Mar 28, 2017 09:36
--- NOTE | 2017-03-28 10:21 | HHI.PR ---
Subjective Remarks Patient seen and examined. AFVSS. He is status post Right femur ORIF/IMN. He is sitting in the chair and reports that the pain is tolerable. Bulb drain in place and draining serosanguineous fluid. He has no issues or complaints at this time. Objective Vitals Vital Signs Date Time Temp Pulse Resp B/P (MAP) Pulse Ox O2 Delivery O2 Flow Rate FiO2 03/28/17 08:00 98.3 83 16 111/62 (78) 96 03/28/17 04:38 20 03/28/17 04:00 97.4 78 18 115/63 (80) 96 03/28/17 00:05 97.4 88 18 107/59 (75) 94 03/27/17 23:13 20 03/27/17 21:40 97.1 74 18 103/53 (70) 94 03/27/17 21:15 72 17 109/56 (73) 100 Nasal Cannula 2 03/27/17 21:00 72 13 107/61 (76) 100 Nasal Cannula 2 03/27/17 20:45 70 15 108/62 (77) 100 Nasal Cannula 4 03/27/17 20:30 70 16 99/59 (72) 98 Nasal Cannula 4 03/27/17 20:15 71 15 83/50 (61) 94 Nasal Cannula 4 03/27/17 20:05 98.2 74 12 95/51 (66) 98 Nasal Cannula 4 03/27/17 15:51 97.5 77 18 123/66 (85) 95 03/27/17 15:34 03/27/17 11:12 86 18 136/73 (94) 97 Room Air 147/74 (98) 03/27/17 11:11 97 Room Air 03/27/17 11:11 18 97 Room Air 03/27/17 11:01 81 22 136/73 (94) 96 Room Air 03/27/17 11:01 76 22 96 Room Air 03/27/17 10:57 98.1 83 18 136/73 (94) 96 I/O 03/27/17 03/27/17 03/27/17 03/28/17 03/28/17 03/28/17 07:00 15:00 23:00 07:00 15:00 23:00 Intake Total 2575 ml 933 ml Output Total 1230 ml 830 ml Balance 1345 ml 103 ml Intake Oral 75 ml IV Total 933 ml Albumin 500 ml Other 2000 ml Output Urine Total 600 ml 750 ml Drainage Total 30 ml 80 ml Estimated Blood Loss 600 ml Bladder Scan Volume Amount 291 ml # Voids 0 # Bowel Movements 0 Result Diagram: 03/28/17 0425 03/28/17 0425 Imaging Last Impressions Chest X-Ray 03/27/17 1105 Signed Impressions: Service Date/Time: Monday, March 27, 2017 12:04 - CONCLUSION: No acute cardiopulmonary abnormality is identified. Mark Floyd MD Hip and Pelvis X-Ray 03/27/17 0000 Signed Impressions: Service Date/Time: Monday, March 27, 2017 12:04 - CONCLUSION: There is a displaced spiral fracture of the distal femoral diaphysis. The proximal aspect of the fracture is approximately 13 mm distal to the femoral side plate. Mark Floyd MD Head CT 03/27/17 0000 Signed Impressions: Service Date/Time: Monday, March 27, 2017 11:36 - CONCLUSION: Negative trauma study. Vasquez Flaherty MD Femur X-Ray 03/27/17 0000 Signed Impressions: Service Date/Time: Monday, March 27, 2017 18:29 - CONCLUSION: Status post ORIF of right femur fracture with hardware in good position. Pj Merchant MD Objective Remarks GEN: Well-developed, well-nourished patient. No acute distress. CV: Regular rate and rhythm without obvious murmurs LUNGS: Clear to auscultation bilaterally. Normal respiratory effort. No wheezes , rales, rhonchi. GI: Soft, nontender, nondistended. No palpable masses. Bowel sounds WNL. EXT: Right leg is in a splint with bulb drain, draining serosanguineous fluid. 1+ pitting edema bilaterally NEURO/PSYCH: Afocal. Awake, alert, and oriented x3. Appropriate insight and judgment. Procedures Status post right femur ORIF/IMN on 03/27/17 Medications and IVs Current Medications Medications (Trade) Dose Ordered Sig/Kiel Route Start Time Stop Time Status Last Admin (NS Flush) 2 ml UNSCH PRN IVF 03/27/17 11:15 03/27/17 22:13 (D50w (Vial) Inj) 50 ml UNSCH PRN IV PUSH 03/27/17 14:00 (Glucagon Inj) 1 mg UNSCH PRN OTHER 03/27/17 14:00 (NovoLOG SUPPLEMENTAL SCALE) 1 ACHS SLIDING SCALE SQ 03/27/17 17:00 03/27/17 21:00 (Norvasc) 10 mg DAILY PO 03/28/17 09:00 (Vitamin D3) 5,000 units DAILY PO 03/28/17 09:00 03/28/17 08:31 (Cymbalta Dr) 90 mg DAILY PO 03/28/17 09:00 03/28/17 08:30 (Zetia) 10 mg DAILY PO 03/28/17 09:00 03/28/17 08:31 (Flomax) 0.4 mg HS PO 03/27/17 21:00 03/27/17 22:13 (Lipitor) 40 mg DAILY PO 03/28/17 09:00 03/28/17 08:30 (Zofran Inj) 4 mg Q8HR PRN IV PUSH 03/27/17 14:15 (Tylenol) 650 mg Q4H PRN PO 03/27/17 14:15 (Lovenox Inj) 40 mg Q24H SQ 03/28/17 19:00 04/06/17 19:01 (Vivi-Colace) 1 tab BID PO 03/27/17 21:00 03/28/17 08:30 (Milk Of Magnandrea Liq) 10 ml Q12H PRN PO 03/27/17 19:00 Cefazolin Sodium 1000 mg/Sodium Chloride 100 ml @ 200 mls/hr Q8H IV 03/28/17 04:00 03/28/17 20:29 03/28/17 03:38 Miscellaneous Information UNSCH PRN XX 03/27/17 19:00 ([place] 10-325 Mg) 1 tab Q6H PRN PO 03/27/17 19:00 03/27/17 22:13 ([place] 10-325 Mg) 2 tab Q6H PRN PO 03/27/17 19:00 03/28/17 03:38 (Zofran Inj) 4 mg Q4H PRN IVP 03/27/17 19:00 (Theragran M Tab) 1 tab DAILY PO 03/28/17 09:00 03/28/17 08:30 (Benadryl) 25 mg Q6H PRN PO 03/27/17 19:00 (Narcan Inj) 0.4 mg UNSCH PRN IV PUSH 03/27/17 19:00 Miscellaneous Information ALL NURSING DEPARTME... UNSCH PRN .XX 03/27/17 20:02 03/28/17 20:01 (Wellbutrin Sr) 150 mg BID PO 03/28/17 09:00 03/28/17 08:30 Sodium Chloride 1,000 ml @ 100 mls/hr Q10H IV 03/27/17 22:00 03/28/17 05:02 (Pneumovax-23 Inj) 25 mcg ONCE ONCE IM 03/29/17 10:00 03/29/17 10:01 A/P Problem List: (1) Closed right femoral fracture ICD Code: S72.91XA - Unspecified fracture of right femur, initial encounter for closed fracture Status: Acute (2) Diabetes mellitus ICD Code: E11.9 - Type 2 diabetes mellitus without complications (3) Hypertension ICD Code: I10 - Essential (primary) hypertension Assessment and Plan This is a 67-year-old male with past medical history safe for type 2 diabetes and hypertension. He is admitted for femur fracture. He is status post right femur ORIF/IMN Femur Fracture Orthopedics consulted, recommendations appreciated Status post right femur ORIF/IMN Pain controlled at this time Continue current pain management Continue Bulb drain Continue Lovenox PT/OT Hypertension: Continue amlodipine Continue valsartan/HCTZ Type 2 diabetes Sliding scale per protocol Hold metformin Discharge Planning Anticipate discharge to rehab Problem Qualifiers (1) Closed right femoral fracture: Qualified Codes: S72.341A - Displaced spiral fracture of shaft of right femur, initial encounter for closed fracture Charles Gross MD, R3 Mar 28, 2017 10:21
[2017-03-28 12:00] VITALS: BP 115/57; PULSE 74; RESP 16; TEMP 97.4; O2SAT 97
--- NOTE | 2017-03-28 14:04 | EKG ---
Date Performed: 03/27/2017 Time Performed: 11:46:14 PTAGE: 67 years EKG: Sinus rhythm WITH OCCASIONAL VENTRICULAR PREMATURE COMPLEXES RIGHT BUNDLE BRANCH BLOCK. ABNORMAL ECG NO PREVIOUS TRACING DOCTOR: Haja Barakat Interpretating Date/Time 03/28/2017 14:02:13
[2017-03-28] MEDS: ENOXAPARIN SODIUM 40 MG/0.4 ML SYRINGE SQ SCH (18:12)
[2017-03-28 19:50] VITALS: BP 120/63; PULSE 87; RESP 18; TEMP 98.6; O2SAT 95
[2017-03-28] MEDS: TAMSULOSIN HCL 0.4 MG CAP PO SCH (20:56)
[2017-03-29 00:05] VITALS: BP 100/57; PULSE 90; RESP 18; TEMP 97.8; O2SAT 94
[2017-03-29 04:10] VITALS: BP 103/53; PULSE 86; RESP 19; TEMP 96.9; O2SAT 93
[2017-03-29] MEDS: ACETAMINOPHEN/HYDROcodone 325 MG/10 MG TAB PO PRN ×4 (06:16→20:50)
[2017-03-29 08:00] VITALS: BP 167/68; PULSE 89; RESP 16; TEMP 96.4; O2SAT 93
[2017-03-29] MEDS: INSULIN ASPART SUPPLEMENTAL SCALE SQ SCH ×4 (08:00→20:52)
[2017-03-29] MEDS: HYDROCHLOROTHIAZIDE 25 MG TAB PO SCH (08:39)
[2017-03-29] MEDS: DULoxetine HCl DR 30 MG CAP PO SCH (08:39)
[2017-03-29] MEDS: DOCUSATE SODIUM 50 MG/SENNA 8.6 MG TAB PO SCH ×2 (08:40→20:50)
[2017-03-29] MEDS: ATORVASTATIN 40 MG TAB PO SCH (08:40)
[2017-03-29] MEDS: EZETIMIBE 10 MG TAB PO SCH (08:40)
[2017-03-29] MEDS: MULTIVITAMINS/MINERALS THERAPEUTIC TAB PO SCH (08:40)
[2017-03-29] MEDS: buPROPion HCL 150 MG SUSTAINED RELEASE TAB PO SCH ×2 (08:40→20:50)
[2017-03-29] MEDS: VALSARTAN 160 MG TAB PO SCH (08:40)
[2017-03-29] MEDS: CHOLECALCIFEROL (VIT D3) 5000 UNIT CAP PO SCH (08:40)
[2017-03-29] MEDS ORDERED: NON-FORMULARY DRUG (Valsartan-Hydrochlorothiazide 1 TAB) PO SCH (09:00)
[2017-03-29] MEDS ORDERED: PNEUMOCOCCAL POLYVALENT INJ 25 MCG/0.5 ML SYR IM ONE (10:00)
--- NOTE | 2017-03-29 10:40 | PD.ORT.PN ---
Subjective Post Op Day #: 2 Subjective Remarks Patient resting in bed with minimal pain. PT in room working with patient. Objective Vitals Vital Signs Date Time Temp Pulse Resp B/P (MAP) Pulse Ox O2 Delivery O2 Flow Rate FiO2 03/29/17 04:10 96.9 86 19 103/53 (70) 93 03/29/17 00:05 97.8 90 18 100/57 (71) 94 03/28/17 19:50 98.6 87 18 120/63 (82) 95 03/28/17 12:00 97.4 74 16 115/57 (76) 97 I/O 03/28/17 03/28/17 03/28/17 03/29/17 03/29/17 03/29/17 07:00 15:00 23:00 07:00 15:00 23:00 Intake Total 933 ml 960 ml 480 ml Output Total 830 ml 60 ml 1465 ml 270 ml Balance 103 ml -60 ml -505 ml 210 ml Intake Oral 960 ml 480 ml IV Total 933 ml Output Urine Total 750 ml 1425 ml 250 ml Drainage Total 80 ml 60 ml 40 ml 20 ml Bladder Scan Volume Amount 291 ml # Bowel Movements 0 0 Result Diagram: 03/28/17 0425 03/28/17 0425 Imaging Last 24 hours Impressions Chest X-Ray 03/27/17 1105 Signed Impressions: Service Date/Time: Monday, March 27, 2017 12:04 - CONCLUSION: No acute cardiopulmonary abnormality is identified. Mark Floyd MD Objective Remarks R leg dressed (clean) and CKS applied moves all toes well, BCR *5 Dressing changed and drain removed. Calf is soft and nontender. Assessment & Plan Ortho Post Op Day #: 2 Problem List: Assessment and Plan POD #2 s/p R femur ORIF/IMN TTWB RLE Lovenox Ice to the RLE PRN Likely SNF on 03/30 F/U with Dr. Santiago or MARY Spence in 1-2 weeks. Minesh Vazquez Mar 29, 2017 10:40
[2017-03-29 12:00] VITALS: BP 109/59; PULSE 83; RESP 16; TEMP 97; TEMP 97.1; O2SAT 92
[2017-03-29] MEDS: SODIUM CHLOR 0.9% 1000 ML INJ 1,000 ML IV SCH ×2 (14:00→14:28)
--- NOTE | 2017-03-29 14:25 | HHI.PR ---
Subjective Remarks patient is a 67 y/o male who presented to ER after he fell earlier. he says that he was sweeping the floor when he tripped and fell-after which he started to have worsening pain to the right lower extremity. he denies any prodromal symptoms before the fall and there's no report of syncopal episode. he denies any abdominal pain, chest pain, nausea or dizziness. 2-3 Patient seen and examined. AFVSS. He is status post Right femur ORIF/IMN. He is sitting in the chair and reports that the pain is tolerable. Bulb drain in place and draining serosanguineous fluid. He has no issues or complaints at this time. 2-4 patient is still having some pain. His right hip area is tender Has not been cleared by orthopedics yet Discussed with RN and patient and family Continue current pain control A.m. labs Increase activity with physical therapy and occupational therapy May need SNF Objective Vitals Vital Signs Date Time Temp Pulse Resp B/P (MAP) Pulse Ox O2 Delivery O2 Flow Rate FiO2 03/29/17 08:00 96.4 89 16 167/68 (101) 93 03/29/17 04:10 96.9 86 19 103/53 (70) 93 03/29/17 00:05 97.8 90 18 100/57 (71) 94 03/28/17 19:50 98.6 87 18 120/63 (82) 95 I/O 03/28/17 03/28/17 03/28/17 03/29/17 03/29/17 03/29/17 07:00 15:00 23:00 07:00 15:00 23:00 Intake Total 933 ml 960 ml 480 ml Output Total 830 ml 60 ml 1465 ml 270 ml Balance 103 ml -60 ml -505 ml 210 ml Intake Oral 960 ml 480 ml IV Total 933 ml Output Urine Total 750 ml 1425 ml 250 ml Drainage Total 80 ml 60 ml 40 ml 20 ml Bladder Scan Volume Amount 291 ml # Bowel Movements 0 0 Result Diagram: 03/28/17 0425 03/28/17 0425 Other Results Laboratory Tests Test 03/27/17 11:11 03/28/17 04:25 White Blood Count 8.4 TH/MM3 12.0 TH/MM3 Red Blood Count 3.84 MIL/MM3 2.76 MIL/MM3 Hemoglobin 12.1 GM/DL 8.7 GM/DL Hematocrit 35.7 % 25.7 % Mean Corpuscular Volume 92.9 FL 93.4 FL Mean Corpuscular Hemoglobin 31.6 PG 31.6 PG Mean Corpuscular Hemoglobin Concent 34.0 % 33.8 % Red Cell Distribution Width 12.5 % 12.5 % Platelet Count 209 TH/MM3 171 TH/MM3 Mean Platelet Volume 7.7 FL 8.0 FL Neutrophils (%) (Auto) 75.5 % 90.1 % Lymphocytes (%) (Auto) 10.8 % 4.0 % Monocytes (%) (Auto) 8.8 % 5.6 % Eosinophils (%) (Auto) 4.1 % 0.0 % Basophils (%) (Auto) 0.8 % 0.3 % Neutrophils # (Auto) 6.4 TH/MM3 10.8 TH/MM3 Lymphocytes # (Auto) 0.9 TH/MM3 0.5 TH/MM3 Monocytes # (Auto) 0.7 TH/MM3 0.7 TH/MM3 Eosinophils # (Auto) 0.3 TH/MM3 0.0 TH/MM3 Basophils # (Auto) 0.1 TH/MM3 0.0 TH/MM3 CBC Comment DIFF FINAL DIFF FINAL Differential Comment Prothrombin Time 10.6 SEC Prothromb Time International Ratio 1.0 RATIO Activated Partial Thromboplast Time 24.7 SEC Blood Urea Nitrogen 30 MG/DL 31 MG/DL Creatinine 1.68 MG/DL 1.78 MG/DL Random Glucose 110 MG/DL 142 MG/DL Calcium Level 9.2 MG/DL 7.7 MG/DL Sodium Level 139 MEQ/L 140 MEQ/L Potassium Level 4.4 MEQ/L 4.8 MEQ/L Chloride Level 104 MEQ/L 106 MEQ/L Carbon Dioxide Level 26.8 MEQ/L 27.7 MEQ/L Anion Gap 8 MEQ/L 6 MEQ/L Estimat Glomerular Filtration Rate 41 ML/MIN 38 ML/MIN Imaging Last Impressions Chest X-Ray 03/27/17 1105 Signed Impressions: Service Date/Time: Monday, March 27, 2017 12:04 - CONCLUSION: No acute cardiopulmonary abnormality is identified. Mark Floyd MD Hip and Pelvis X-Ray 03/27/17 0000 Signed Impressions: Service Date/Time: Monday, March 27, 2017 12:04 - CONCLUSION: There is a displaced spiral fracture of the distal femoral diaphysis. The proximal aspect of the fracture is approximately 13 mm distal to the femoral side plate. Mark Floyd MD Head CT 03/27/17 0000 Signed Impressions: Service Date/Time: Monday, March 27, 2017 11:36 - CONCLUSION: Negative trauma study. Vasquez Flaherty MD Femur X-Ray 03/27/17 0000 Signed Impressions: Service Date/Time: Monday, March 27, 2017 18:29 - CONCLUSION: Status post ORIF of right femur fracture with hardware in good position. Pj Merchant MD Objective Remarks GENERAL: Awake alert oriented 3 talkative and cooperative in some pain SKIN: Warm and dry. HEAD: Atraumatic. Normocephalic. EYES: Pupils equal and round. No scleral icterus. No injection or drainage. Extraocular muscles intact glasses ENT: No nasal bleeding or discharge. Mucous membranes pink and moist. Tongue is midline NECK: Trachea midline. No JVD. Supple CARDIOVASCULAR: Regular rate and rhythm. S1 and S2 no S3 or S4 RESPIRATORY: No accessory muscle use. Clear to auscultation. Breath sounds equal bilaterally. GASTROINTESTINAL: Abdomen soft, non-tender, nondistended. Hepatic and splenic margins not palpable. Obese MUSCULOSKELETAL: Extremities without clubbing, cyanosis, or edema. No obvious deformities. NEUROLOGICAL: Awake and alert. No obvious cranial nerve deficits. Motor grossly within normal limits. 4 out of 5 muscle strength in the arms and legs. Normal speech. Right leg is dressed PSYCHIATRIC: Appropriate mood and affect; insight and judgment normal. Procedures Status post right femur ORIF/IMN on 03/27/17 Medications and IVs Current Medications Sodium Chloride (NS Flush) 2 ml UNSCH PRN IVF FLUSH AFTER USING IV ACCESS Last administered on 03/27/17at 22:13; Start 03/27/17 at 11:15 Morphine Sulfate (Morphine Inj) 4 mg ONCE ONCE IV PUSH Last administered on 03/27/17at 11:17; Start 03/27/17 at 11:15; Stop 03/27/17 at 11:16; Status DC Ondansetron HCl (Zofran Inj) 4 mg ONCE ONCE IV PUSH Last administered on at 11:17; Start 03/27/17 at 11:15; Stop 03/27/17 at 11:16; Status DC Hydromorphone HCl (Dilaudid Pf Inj) 1 mg ONCE ONCE IV PUSH Last administered on 03/27/17at 13:27; Start 03/27/17 at 13:30; Stop 03/27/17 at 13:31; Status DC Dextrose (D50w (Vial) Inj) 50 ml UNSCH PRN IV PUSH HYPOGLYCEMIA-SEE COMMENTS; Start 03/27/17 at 14:00 Glucagon (Glucagon Inj) 1 mg UNSCH PRN OTHER HYPOGLYCEMIA-SEE COMMENTS; Start 03/27/17 at 14:00 Insulin Aspart (NovoLOG SUPPLEMENTAL SCALE) 1 ACHS SLIDING SCALE SQ Last administered on 03/28/17at 21:11; Start 03/27/17 at 17:00 Sodium Chloride 1,000 ml @ 100 mls/hr Q10H IV ; Start 03/27/17 at 14:00; Stop at 19:09; Status DC Amlodipine Besylate (Norvasc) 10 mg DAILY PO Last administered on 03/29/17at 08: 40; Start 03/28/17 at 09:00 Bupropion HCl (Wellbutrin Xl 24 Hr) 150 mg DAILY PO ; Start 03/28/17 at 09:00; Stop 03/28/17 at 09:00; Status DC Cholecalciferol (Vitamin D3) 5,000 units DAILY PO Last administered on at 08:40; Start 03/28/17 at 09:00 Duloxetine HCl (Cymbalta Dr) 90 mg DAILY PO Last administered on 03/29/17at 08:39 ; Start 03/28/17 at 09:00 Duloxetine HCl (Cymbalta Dr) 90 mg DAILY PO ; Start 03/28/17 at 09:00; Stop at 09:00; Status DC EZETIMIBE (Zetia) 10 mg DAILY PO Last administered on 03/29/17at 08:40; Start 03/28/17 at 09:00 Tamsulosin HCl (Flomax) 0.4 mg HS PO Last administered on 03/28/17at 20:56; Start 03/27/17 at 21:00 Atorvastatin Calcium (Lipitor) 40 mg DAILY PO Last administered on 03/29/17at 08: 40; Start 03/28/17 at 09:00 Morphine Sulfate (Morphine Inj) 2 mg Q4H PRN IV PUSH PAIN 1-10; Start 03/27/17 at 14:15; Stop 03/27/17 at 19:12; Status DC Ondansetron HCl (Zofran Inj) 4 mg Q8HR PRN IV PUSH NAUSEA; Start 03/27/17 at 14: 15 Acetaminophen (Tylenol) 650 mg Q4H PRN PO FEVER; Start 03/27/17 at 14:15 Gentamicin Sulfate (Gentamicin Inj) 240 mg STK-MED ONCE .ROUTE ; Start 03/27/17 at 14:55; Stop 03/27/17 at 14:56; Status DC Acetaminophen 100 ml @ As Directed STK-MED ONCE IV ; Start 03/27/17 at 14:57; Stop 03/27/17 at 14:58; Status DC Artificial Tears (Lacrilube Opht Oint) 3.5 applic STK-MED ONCE .ROUTE ; Start at 15:09; Stop 03/27/17 at 15:10; Status DC Cefazolin Sodium/ Dextrose 50 ml @ As Directed STK-MED ONCE .ROUTE Last administered on 03/27/17at 16:40; Start 03/27/17 at 15:56; Stop 03/27/17 at 15:57; Status DC Vancomycin HCl (Vancomycin Inj) 1,000 mg STK-MED ONCE .ROUTE Last administered on 03/27/17at 16:30; Start 03/27/17 at 15:56; Stop 03/27/17 at 15:57; Status DC Tranexamic Acid (Cyklokapron Inj) 1,000 mg STK-MED ONCE .ROUTE ; Start 03/27/17 at 16:38; Stop 03/27/17 at 16:39; Status DC Tranexamic Acid (Cyklokapron Inj) 1,000 mg STK-MED ONCE .ROUTE ; Start 03/27/17 at 16:41; Stop 03/27/17 at 16:42; Status DC Albumin Human 500 ml @ As Directed STK-MED ONCE IV ; Start 03/27/17 at 18:11; Stop 03/27/17 at 18:12; Status DC Sugammadex Sodium (Bridion Inj) 200 mg STK-MED ONCE IV PUSH ; Start 03/27/17 at 18:13; Stop 03/27/17 at 18:14; Status DC Dextrose/Sodium Chloride 1,000 ml @ 100 mls/hr Q10H IV ; Start 03/27/17 at 18:59 ; Stop 03/27/17 at 21:29; Status DC Miscellaneous Information (Post-op Orders (for Pharmacy)) STAT ONCE XX ; Start 03/27/17 at 19:00; Stop 03/27/17 at 20:05; Status DC Enoxaparin Sodium (Lovenox Inj) 40 mg Q24H SQ Last administered on 03/28/17at 18: 12; Start 03/28/17 at 19:00; Stop 04/06/17 at 19:01 Senna/Docusate Sodium (Vivi-Colace) 1 tab BID PO Last administered on 03/29/17at 08:40; Start 03/27/17 at 21:00 Magnesium Hydroxide (Milk Of Magnesia Liq) 10 ml Q12H PRN PO CONSTIPATION; Start 03/27/17 at 19:00 Cefazolin Sodium 1000 mg/Sodium Chloride 100 ml @ 200 mls/hr Q8H IV Last administered on 03/28/17at 20:57; Start 03/28/17 at 04:00; Stop 03/28/17 at 20:29; Status DC Miscellaneous Information UNSCH PRN XX SEE LABEL COMMENTS; Start 03/27/17 at 19 :00 Miscellaneous Medication ([facility]) ONCE ONCE XX ; Start 03/27 at 19:00; Stop 03/27/17 at 19:17; Status DC Acetaminophen/ Hydrocodone Bitart ([place] 10-325 Mg) 1 tab Q6H PRN PO PAIN LESS THAN 5 ON SCALE Last administered on 03/27/17at 22:13; Start 03/27/17 at 19:00 Acetaminophen/ Hydrocodone Bitart ([place] 10-325 Mg) 2 tab Q6H PRN PO PAIN GREATER THAN/EQUAL TO 5 Last administered on 03/29/17at 14:16; Start 03/27/17 at 19 :00 Ondansetron HCl (Zofran Inj) 4 mg Q4H PRN IVP NAUSEA OR VOMITING; Start at 19:00 Multivitamins/ Minerals Therapeutic (Theragran M Tab) 1 tab DAILY PO Last administered on 03/29/17at 08:40; Start 03/28/17 at 09:00 Diphenhydramine HCl (Benadryl) 25 mg Q6H PRN PO ITCHING; Start 03/27/17 at 19:00 Naloxone HCl (Narcan Inj) 0.4 mg UNSCH PRN IV PUSH RESPIRATORY RATE LESS THAN 10; Start 03/27/17 at 19:00 Fentanyl Citrate (fentaNYL INJ) 200 mcg STK-MED ONCE .ROUTE ; Start 03/27/17 at 20:13; Stop 03/27/17 at 20:14; Status DC Midazolam HCl (Versed Inj) 2 mg STK-MED ONCE .ROUTE ; Start 03/27/17 at 20:13; Stop 03/27/17 at 20:14; Status DC Miscellaneous Information ALL NURSING DEPARTME... UNSCH PRN .XX SEE LABEL COMMENTS; Start 03/27/17 at 20:02; Stop 03/28/17 at 20:01; Status DC Bupropion HCl (Wellbutrin Sr) 150 mg BID PO Last administered on 03/29/17at 08:40 ; Start 03/28/17 at 09:00 Morphine Sulfate (*morphine INJ PERIprocedure ONLY) 4 mg STK-MED ONCE .ROUTE Last administered on 03/27/17at 20:59; Start 03/27/17 at 20:59; Stop 03/27/17 at 21: 00; Status DC Sodium Chloride 1,000 ml @ 100 mls/hr Q10H IV Last administered on 03/28/17at 05 :02; Start 03/27/17 at 22:00 Pneumococcal Polyvalent Vaccine (Pneumovax-23 Inj) 25 mcg ONCE ONCE IM ; Start 03/29/17 at 10:00; Stop 03/29/17 at 10:01; Status DC Non-Formulary Medication 1 tab DAILY PO ; Start 03/29/17 at 09:00; Status UNV Valsartan (Diovan) 160 mg DAILY PO Last administered on 03/29/17at 08:40; Start 03/29/17 at 09:00 Hydrochlorothiazide (Hydrodiuril) 25 mg DAILY PO Last administered on 03/29/17at 08:39; Start 03/29/17 at 09:00 A/P Problem List: (1) Closed right femoral fracture ICD Code: S72.91XA - Unspecified fracture of right femur, initial encounter for closed fracture Status: Acute (2) Diabetes mellitus ICD Code: E11.9 - Type 2 diabetes mellitus without complications (3) Hypertension ICD Code: I10 - Essential (primary) hypertension Assessment and Plan This is a 67-year-old male with past medical history safe for type 2 diabetes and hypertension. He is admitted for femur fracture. He is status post right femur ORIF/IMN Femur Fracture Orthopedics consulted, recommendations appreciated Status post right femur ORIF/IMN Pain controlled at this time Continue current pain management Continue Bulb drain Continue Lovenox PT/OT Hypertension: Continue amlodipine Continue valsartan/HCTZ Type 2 diabetes Sliding scale per protocol Hold metformin Renal insufficiency chronic kidney disease stage 2-3 A.m. labs Try to avoid nephrotoxins Obesity Weight loss recommended Physical therapy and occupational therapy. May need SNF at discharge Discharge Planning Pending clearance by orthopedic surgery and insurance clearance Problem Qualifiers (1) Closed right femoral fracture: Qualified Codes: S72.341A - Displaced spiral fracture of shaft of right femur, initial encounter for closed fracture Buck Parker DO Mar 29, 2017 14:25
[2017-03-29] MEDS ORDERED: guaiFENesin E.R. 600 MG TAB PO ONE (14:30)
[2017-03-29] MEDS ORDERED: RESP: ALBUTEROL 2.5 MG/IPRATROPIUM 0.5 MG NEB (PRN) NEB (14:30)
[2017-03-29] MEDS ORDERED: COMMODE 3-IN-11 MIS (14:52)
[2017-03-29] MEDS ORDERED: WALKER WHEELS/F1 MIS (14:52)
[2017-03-29] MEDS: ENOXAPARIN SODIUM 40 MG/0.4 ML SYRINGE SQ SCH (17:40)
[2017-03-29 20:00] VITALS: BP 103/56; PULSE 84; RESP 16; TEMP 96.4; O2SAT 93
[2017-03-29] MEDS: TAMSULOSIN HCL 0.4 MG CAP PO SCH (20:50)
[2017-03-29] MEDS: guaiFENesin E.R. 600 MG TAB PO SCH (20:50)
[2017-03-29] MEDS: MAGNESIUM HYDROXIDE SUSP 30 ML CUP PO PRN (23:13)
[2017-03-30] VITALS (7 sets, daily range): BP systolic 99–122; BP diastolic 51–67; PULSE 78–104; RESP 16–18; TEMP 96.7–99.5; O2SAT 94–97
[2017-03-30 07:42] LABS: AUTOMATED NEUTROPHIL # 5.7 TH/MM3 (1.8-7.7); BASOPHIL # 0.1 TH/MM3 (0-0.2); BASOPHIL % 0.7 % (0.0-2.0); EOSINOPHIL # 0.4 TH/MM3 (0-0.4); EOSINOPHIL % 4.6 % (0.0-4.0); HEMATOCRIT 21.9 % (39.0-51.0); HEMOGLOBIN 7.6 GM/DL (13.0-17.0); LYMPH % 12.5 % (9.0-44.0); MEAN CELL VOLUME 92.6 FL (80.0-100.0); MEAN CORPUSCULAR HEMOGLOBIN 32.2 PG (27.0-34.0); MEAN CORPUSCULAR HGB CONC 34.8 % (32.0-36.0); MEAN PLATELET VOLUME 8.1 FL (7.0-11.0); MONO % 11.9 % (0.0-8.0); NEUT % 70.3 % (16.0-70.0); PLATELET COUNT 169 TH/MM3 (150-450); RED BLOOD COUNT 2.36 MIL/MM3 (4.50-5.90); RED CELL DISTRIBUTION WIDTH 12.5 % (11.6-17.2); WHITE BLOOD COUNT 8.1 TH/MM3 (4.0-11.0)
[2017-03-30] MEDS: INSULIN ASPART SUPPLEMENTAL SCALE SQ SCH ×4 (08:00→19:56)
[2017-03-30 08:16] LABS: ALBUMIN 2.8 GM/DL (3.4-5.0); ALKALINE PHOSPHATASE 64 U/L (45-117); ALT (GPT) 19 U/L (12-78); AST (GOT) 39 U/L (15-37); BICARBONATE 28.3 MEQ/L (21.0-32.0); BLOOD UREA NITROGEN 31 MG/DL (7-18); CALCIUM 7.8 MG/DL (8.5-10.1); CHLORIDE 102 MEQ/L (98-107); CREATININE 1.65 MG/DL (0.60-1.30); FREE T4 1.28 NG/DL (0.76-1.46); GLOMERULAR FILTRATION RATE 42 ML/MIN (>89); GLUCOSE,RANDOM 112 MG/DL (74-106); MAGNESIUM 2.3 MG/DL (1.5-2.5); PHOSPHORUS 2.4 MG/DL (2.5-4.9); SODIUM (NA) 136 MEQ/L (136-145); TOTAL BILIRUBIN ADULT 0.7 MG/DL (0.2-1.0); TOTAL PROTEIN 6.2 GM/DL (6.4-8.2)
[2017-03-30] MEDS: guaiFENesin E.R. 600 MG TAB PO SCH ×2 (08:49→19:55)
[2017-03-30] MEDS: VALSARTAN 160 MG TAB PO SCH (08:49)
[2017-03-30] MEDS: HYDROCHLOROTHIAZIDE 25 MG TAB PO SCH (08:49)
[2017-03-30] MEDS: ATORVASTATIN 40 MG TAB PO SCH (08:49)
[2017-03-30] MEDS: EZETIMIBE 10 MG TAB PO SCH (08:49)
[2017-03-30] MEDS: buPROPion HCL 150 MG SUSTAINED RELEASE TAB PO SCH ×2 (08:49→19:56)
[2017-03-30] MEDS: MULTIVITAMINS/MINERALS THERAPEUTIC TAB PO SCH (08:50)
[2017-03-30] MEDS: DOCUSATE SODIUM 50 MG/SENNA 8.6 MG TAB PO SCH ×2 (08:50→19:55)
[2017-03-30] MEDS: CHOLECALCIFEROL (VIT D3) 5000 UNIT CAP PO SCH (08:50)
[2017-03-30] MEDS: DULoxetine HCl DR 30 MG CAP PO SCH (08:50)
[2017-03-30] MEDS: ACETAMINOPHEN/HYDROcodone 325 MG/10 MG TAB PO PRN ×2 (08:51→14:32)
[2017-03-30] MEDS: SODIUM CHLOR 0.9% 1000 ML INJ 1,000 ML IV SCH ×4 (09:57→21:58)
--- NOTE | 2017-03-30 12:31 | PD.ORT.PN ---
Subjective Post Op Day #: 3 Subjective Remarks Patient resting in bed with minimal pain to the RLE. Objective Vitals Vital Signs Date Time Temp Pulse Resp B/P (MAP) Pulse Ox O2 Delivery O2 Flow Rate FiO2 03/30/17 12:06 97.5 88 17 107/56 (73) 94 03/30/17 08:00 97.8 87 16 115/63 (80) 94 03/30/17 00:00 98.6 78 17 99/51 (67) 97 03/29/17 20:00 96.4 84 16 103/56 (72) 93 I/O 03/29/17 03/29/17 03/29/17 03/30/17 03/30/17 03/30/17 07:00 15:00 23:00 07:00 15:00 23:00 Intake Total 480 ml 600 ml 600 ml 700 ml Output Total 270 ml 1100 ml 600 ml 500 ml Balance 210 ml -500 ml 0 ml 200 ml Intake Oral 480 ml 600 ml 600 ml 700 ml Output Urine Total 250 ml 1100 ml 600 ml 500 ml Drainage Total 20 ml # Bowel Movements 0 Result Diagram: 03/30/17 0701 03/30/17 0701 Imaging Last 24 hours Impressions Chest X-Ray 03/27/17 1105 Signed Impressions: Service Date/Time: Monday, March 27, 2017 12:04 - CONCLUSION: No acute cardiopulmonary abnormality is identified. Mark Floyd MD Objective Remarks R leg dressed (clean) and CKS applied moves all toes well, BCR *5. + SILT. 2+ pedal pulse. Calf is soft and nontender. Assessment & Plan Assessment and Plan POD #3 s/p R femur ORIF/IMN TTWB RLE Lovenox Ice to the RLE PRN Likely SNF on 03/30 F/U with Dr. Santiago or MARY Spence in 1-2 weeks. Ortho signing off. Anemia (HGB: 7.6). Medical aware per primary nurse. Medical to manage. Minesh Vazquez Mar 30, 2017 12:31
--- NOTE | 2017-03-30 12:46 | HHI.PR ---
Subjective Remarks in no acute distress. somewhat looks pale today. no dizziness, sob. pain seems to be fairly controlled. d/w the RN. Objective Vitals Vital Signs Date Time Temp Pulse Resp B/P (MAP) Pulse Ox O2 Delivery O2 Flow Rate FiO2 03/30/17 12:06 97.5 88 17 107/56 (73) 94 03/30/17 08:00 97.8 87 16 115/63 (80) 94 03/30/17 00:00 98.6 78 17 99/51 (67) 97 03/29/17 20:00 96.4 84 16 103/56 (72) 93 I/O 03/29/17 03/29/17 03/29/17 03/30/17 03/30/17 03/30/17 07:00 15:00 23:00 07:00 15:00 23:00 Intake Total 480 ml 600 ml 600 ml 700 ml Output Total 270 ml 1100 ml 600 ml 500 ml Balance 210 ml -500 ml 0 ml 200 ml Intake Oral 480 ml 600 ml 600 ml 700 ml Output Urine Total 250 ml 1100 ml 600 ml 500 ml Drainage Total 20 ml # Bowel Movements 0 Result Diagram: 03/30/17 0701 03/30/17 0701 Imaging Last Impressions Chest X-Ray 03/27/17 1105 Signed Impressions: Service Date/Time: Monday, March 27, 2017 12:04 - CONCLUSION: No acute cardiopulmonary abnormality is identified. Mark Floyd MD Hip and Pelvis X-Ray 03/27/17 0000 Signed Impressions: Service Date/Time: Monday, March 27, 2017 12:04 - CONCLUSION: There is a displaced spiral fracture of the distal femoral diaphysis. The proximal aspect of the fracture is approximately 13 mm distal to the femoral side plate. Mark Floyd MD Head CT 03/27/17 0000 Signed Impressions: Service Date/Time: Monday, March 27, 2017 11:36 - CONCLUSION: Negative trauma study. Vasquez Flaherty MD Femur X-Ray 03/27/17 0000 Signed Impressions: Service Date/Time: Monday, March 27, 2017 18:29 - CONCLUSION: Status post ORIF of right femur fracture with hardware in good position. Pj Merchant MD Objective Remarks GENERAL: This is a well-nourished, well-developed patient, in no apparent distress. CARDIOVASCULAR: Regular rate and regular rhythm without murmurs, gallops, or rubs. RESPIRATORY: Clear to auscultation. Breath sounds equal bilaterally. No wheezes , rales, or rhonchi. GASTROINTESTINAL: Abdomen soft, non-tender, nondistended. Normal, active bowel sounds MUSCULOSKELETAL: Extremities without clubbing, cyanosis, or edema. NEURO: Alert & Oriented x4 to person, place, time, situation. Moves all ext x4 Procedures Status post right femur ORIF/IMN on 03/27/17 Medications and IVs Inpatient Medications Acetaminophen (Tylenol) 650 mg Q4H PRN PO FEVER; Start 03/27/17 at 14:15 Acetaminophen/ Hydrocodone Bitart ([place] 10-325 Mg) 2 tab Q6H PRN PO PAIN GREATER THAN/EQUAL TO 5 Last administered on 03/29/17at 14:16; Start 03/27/17 at 19 :00 Albuterol/ Ipratropium (Duoneb Neb) 1 ampule Q4HR NEB PRN NEB SOB/cough; Start 03/29/17 at 14:30 Amlodipine Besylate (Norvasc) 10 mg DAILY PO Last administered on 03/30/17at 08: 49; Start 03/28/17 at 09:00 Atorvastatin Calcium (Lipitor) 40 mg DAILY PO Last administered on 03/30/17at 08: 49; Start 03/28/17 at 09:00 Bupropion HCl (Wellbutrin Sr) 150 mg BID PO Last administered on 03/30/17at 08:49 ; Start 03/28/17 at 09:00 Bupropion HCl (Wellbutrin Xl 24 Hr) 150 mg DAILY PO ; Start 03/28/17 at 09:00; Stop 03/28/17 at 09:00; Status DC Cefazolin Sodium 1000 mg/Sodium Chloride 100 ml @ 200 mls/hr Q8H IV Last administered on 03/28/17at 20:57; Start 03/28/17 at 04:00; Stop 03/28/17 at 20:29; Status DC Cholecalciferol (Vitamin D3) 5,000 units DAILY PO Last administered on at 08:50; Start 03/28/17 at 09:00 Dextrose (D50w (Vial) Inj) 50 ml UNSCH PRN IV PUSH HYPOGLYCEMIA-SEE COMMENTS; Start 03/27/17 at 14:00 Dextrose/Sodium Chloride 1,000 ml @ 100 mls/hr Q10H IV ; Start 03/27/17 at 18:59 ; Stop 03/27/17 at 21:29; Status DC Diphenhydramine HCl (Benadryl) 25 mg Q6H PRN PO ITCHING; Start 03/27/17 at 19:00 Duloxetine HCl (Cymbalta Dr) 90 mg DAILY PO ; Start 03/28/17 at 09:00; Stop at 09:00; Status DC Enoxaparin Sodium (Lovenox Inj) 40 mg Q24H SQ Last administered on 03/29/17at 17: 40; Start 03/28/17 at 19:00; Stop 04/06/17 at 19:01 EZETIMIBE (Zetia) 10 mg DAILY PO Last administered on 03/30/17at 08:49; Start 03/28/17 at 09:00 Glucagon (Glucagon Inj) 1 mg UNSCH PRN OTHER HYPOGLYCEMIA-SEE COMMENTS; Start 03/27/17 at 14:00 Guaifenesin (Mucinex Er) 600 mg BID PO Last administered on 03/30/17at 08:49; Start 03/29/17 at 21:00 Hydrochlorothiazide (Hydrodiuril) 25 mg DAILY PO Last administered on 03/30/17at 08:49; Start 03/29/17 at 09:00 Hydromorphone HCl (Dilaudid Pf Inj) 1 mg ONCE ONCE IV PUSH Last administered on 03/27/17at 13:27; Start 03/27/17 at 13:30; Stop 03/27/17 at 13:31; Status DC Insulin Aspart (NovoLOG SUPPLEMENTAL SCALE) 1 ACHS SLIDING SCALE SQ Last administered on 03/30/17at 11:27; Start 03/27/17 at 17:00 Magnesium Hydroxide (Milk Of Magnesia Liq) 10 ml Q12H PRN PO CONSTIPATION Last administered on 03/29/17at 23:13; Start 03/27/17 at 19:00 Miscellaneous Information ALL NURSING DEPARTME... UNSCH PRN .XX SEE LABEL COMMENTS; Start 03/27/17 at 20:02; Stop 03/28/17 at 20:01; Status DC Miscellaneous Information (Post-op Orders (for Pharmacy)) STAT ONCE XX ; Start 03/27/17 at 19:00; Stop 03/27/17 at 20:05; Status DC Miscellaneous Medication ([facility] Pharmacy Information) ONCE ONCE XX ; Start 03/27 at 19:00; Stop 03/27/17 at 19:17; Status DC Morphine Sulfate (Morphine Inj) 2 mg Q4H PRN IV PUSH PAIN 1-10; Start 03/27/17 at 14:15; Stop 03/27/17 at 19:12; Status DC Multivitamins/ Minerals Therapeutic (Theragran M Tab) 1 tab DAILY PO Last administered on 03/30/17at 08:50; Start 03/28/17 at 09:00 Naloxone HCl (Narcan Inj) 0.4 mg UNSCH PRN IV PUSH RESPIRATORY RATE LESS THAN 10; Start 03/27/17 at 19:00 Ondansetron HCl (Zofran Inj) 4 mg Q4H PRN IVP NAUSEA OR VOMITING; Start at 19:00 Pneumococcal Polyvalent Vaccine (Pneumovax-23 Inj) 25 mcg ONCE ONCE IM ; Start 03/29/17 at 10:00; Stop 03/29/17 at 10:01; Status DC Senna/Docusate Sodium (Vivi-Colace) 1 tab BID PO Last administered on 03/30/17at 08:50; Start 03/27/17 at 21:00 Sodium Chloride 1,000 ml @ 100 mls/hr Q10H IV Last administered on 03/29/17at 14 :00; Start 03/27/17 at 22:00 Sodium Chloride (NS Flush) 2 ml UNSCH PRN IVF FLUSH AFTER USING IV ACCESS Last administered on 03/27/17at 22:13; Start 03/27/17 at 11:15 Tamsulosin HCl (Flomax) 0.4 mg HS PO Last administered on 03/29/17at 20:50; Start 03/27/17 at 21:00 Valsartan (Diovan) 160 mg DAILY PO Last administered on 03/30/17at 08:49; Start 03/29/17 at 09:00 A/P Problem List: (1) Closed right femoral fracture ICD Code: S72.91XA - Unspecified fracture of right femur, initial encounter for closed fracture Status: Acute (2) Diabetes mellitus ICD Code: E11.9 - Type 2 diabetes mellitus without complications (3) Hypertension ICD Code: I10 - Essential (primary) hypertension Assessment and Plan Femur Fracture Orthopedics consulted, recommendations appreciated Status post right femur ORIF/IMN Pain controlled at this time Continue current pain management Continue Bulb drain Continue Lovenox PT/OT anemia- post-op with further drop in H/H will transfuse with one unit of PRBC- check H/H in am. Hypertension: Continue amlodipine Continue valsartan/HCTZ Type 2 diabetes Sliding scale per protocol Hold metformin Renal insufficiency chronic kidney disease stage 2-3 A.m. labs Try to avoid nephrotoxins Obesity Weight loss recommended Physical therapy and occupational therapy. Discharge Planning dc to SNF tomorrow if stable. Problem Qualifiers (1) Closed right femoral fracture: Qualified Codes: S72.341A - Displaced spiral fracture of shaft of right femur, initial encounter for closed fracture Gucci Isaac MD Mar 30, 2017 12:46
[2017-03-30] MEDS ORDERED: NOVOLOGSS SQ (13:53)
--- NOTE | 2017-03-30 13:56 | HHI.DS ---
Discharge Summary Admission Date Mar 27, 2017 at 13:53 Discharge Date: Mar 31, 2017 Admitting Diagnosis r femur fracture (1) Closed right femoral fracture ICD Code: S72.91XA - Unspecified fracture of right femur, initial encounter for closed fracture Diagnosis: Principal Status: Acute (2) Diabetes mellitus ICD Code: E11.9 - Type 2 diabetes mellitus without complications Diagnosis: Secondary (3) Hypertension ICD Code: I10 - Essential (primary) hypertension Diagnosis: Secondary Procedures Status post right femur ORIF/IMN on 03/27/17 Brief History - From Admission patient is a 67 y/o male who presented to ER after he fell earlier. he says that he was sweeping the floor when he tripped and fell-after which he started to have worsening pain to the right lower extremity. he denies any prodromal symptoms before the fall and there's no report of syncopal episode. he denies any abdominal pain, chest pain, nausea or dizziness. CBC/BMP: 03/30/17 0701 03/30/17 0701 Significant Findings Laboratory Tests Test 03/28/17 04:25 03/30/17 07:01 White Blood Count 12.0 TH/MM3 (4.0-11.0) Red Blood Count 2.76 MIL/MM3 (4.50-5.90) 2.36 MIL/MM3 (4.50-5.90) Hemoglobin 8.7 GM/DL (13.0-17.0) 7.6 GM/DL (13.0-17.0) Hematocrit 25.7 % (39.0-51.0) 21.9 % (39.0-51.0) Neutrophils (%) (Auto) 90.1 % (16.0-70.0) 70.3 % (16.0-70.0) Lymphocytes (%) (Auto) 4.0 % (9.0-44.0) Neutrophils # (Auto) 10.8 TH/MM3 (1.8-7.7) Lymphocytes # (Auto) 0.5 TH/MM3 (1.0-4.8) Blood Urea Nitrogen 31 MG/DL (7-18) 31 MG/DL (7-18) Creatinine 1.78 MG/DL (0.60-1.30) 1.65 MG/DL (0.60-1.30) Random Glucose 142 MG/DL (74-106) 112 MG/DL (74-106) Calcium Level 7.7 MG/DL (8.5-10.1) 7.8 MG/DL (8.5-10.1) Estimat Glomerular Filtration Rate 38 ML/MIN (>89) 42 ML/MIN (>89) Monocytes (%) (Auto) 11.9 % (0.0-8.0) Eosinophils (%) (Auto) 4.6 % (0.0-4.0) Monocytes # (Auto) 1.0 TH/MM3 (0-0.9) Total Protein 6.2 GM/DL (6.4-8.2) Albumin 2.8 GM/DL (3.4-5.0) Phosphorus Level 2.4 MG/DL (2.5-4.9) Aspartate Amino Transf (AST/SGOT) 39 U/L (15-37) Imaging Last Impressions Chest X-Ray 03/27/17 1105 Signed Impressions: Service Date/Time: Monday, March 27, 2017 12:04 - CONCLUSION: No acute cardiopulmonary abnormality is identified. Mark Floyd MD Hip and Pelvis X-Ray 03/27/17 0000 Signed Impressions: Service Date/Time: Monday, March 27, 2017 12:04 - CONCLUSION: There is a displaced spiral fracture of the distal femoral diaphysis. The proximal aspect of the fracture is approximately 13 mm distal to the femoral side plate. Mark Floyd MD Head CT 03/27/17 0000 Signed Impressions: Service Date/Time: Monday, March 27, 2017 11:36 - CONCLUSION: Negative trauma study. Vasquez Flaherty MD Femur X-Ray 03/27/17 0000 Signed Impressions: Service Date/Time: Monday, March 27, 2017 18:29 - CONCLUSION: Status post ORIF of right femur fracture with hardware in good position. Pj Merchant MD PE at Discharge GENERAL: This is a well-nourished, well-developed patient, in no apparent distress. CARDIOVASCULAR: Regular rate and regular rhythm without murmurs, gallops, or rubs. RESPIRATORY: Clear to auscultation. Breath sounds equal bilaterally. No wheezes , rales, or rhonchi. GASTROINTESTINAL: Abdomen soft, non-tender, nondistended. Normal, active bowel sounds MUSCULOSKELETAL: Extremities without clubbing, cyanosis, or edema. NEURO: Alert & Oriented x4 to person, place, time, situation. Moves all ext x4 Hospital Course patient was admitted with right femoral fracture. he was evaluated by ortho and underwent surgical repair. he was found to have post-op anemia for which he received PRBC transfusion. metformin was held due to renal insufficiency. he will need a f/u with his PCP and ortho. Pt Condition on Discharge: Fair Discharge Disposition: Discharge to SNF Discharge Time: > 30 minutes Discharge Instructions DIET: Follow Instructions for: Heart Healthy Diet, Diabetic Diet Activities you can perform: Toe Touch Weight Bearing Gucci Isaac MD Mar 30, 2017 13:56
[2017-03-30 15:52] LABS: HEMOGLOBIN A1C 6.1 % (4.3-6.0)
[2017-03-30] MEDS ORDERED: BISACODYL 10 MG SUPP RECTAL PRN (17:00)
[2017-03-30] MEDS: MAGNESIUM HYDROXIDE SUSP 30 ML CUP PO PRN (18:28)
[2017-03-30] MEDS: ENOXAPARIN SODIUM 40 MG/0.4 ML SYRINGE SQ SCH (18:29)
[2017-03-30] MEDS: TAMSULOSIN HCL 0.4 MG CAP PO SCH (19:56)
[2017-03-31 00:51] VITALS: BP 118/64; PULSE 84; RESP 16; TEMP 98.4; O2SAT 94
[2017-03-31 04:20] VITALS: BP 116/75; PULSE 74; RESP 18; TEMP 96.9; O2SAT 94
[2017-03-31] MEDS: ACETAMINOPHEN/HYDROcodone 325 MG/10 MG TAB PO PRN (06:09)
[2017-03-31 07:50] LABS: HEMATOCRIT 22.9 % (39.0-51.0); HEMOGLOBIN 8.2 GM/DL (13.0-17.0)
[2017-03-31 08:00] VITALS: BP 115/61; PULSE 86; RESP 18; TEMP 98.5; O2SAT 96
[2017-03-31] MEDS: INSULIN ASPART SUPPLEMENTAL SCALE SQ SCH ×2 (08:00→12:00)
[2017-03-31] MEDS: VALSARTAN 160 MG TAB PO SCH (08:26)
[2017-03-31] MEDS: HYDROCHLOROTHIAZIDE 25 MG TAB PO SCH (08:26)
[2017-03-31] MEDS: DULoxetine HCl DR 30 MG CAP PO SCH (08:26)
[2017-03-31] MEDS: buPROPion HCL 150 MG SUSTAINED RELEASE TAB PO SCH (08:26)
[2017-03-31] MEDS: DOCUSATE SODIUM 50 MG/SENNA 8.6 MG TAB PO SCH (08:27)
[2017-03-31] MEDS: EZETIMIBE 10 MG TAB PO SCH (08:27)
[2017-03-31] MEDS: CHOLECALCIFEROL (VIT D3) 5000 UNIT CAP PO SCH (08:27)
[2017-03-31] MEDS: ATORVASTATIN 40 MG TAB PO SCH (08:27)
[2017-03-31] MEDS: guaiFENesin E.R. 600 MG TAB PO SCH (08:27)
[2017-03-31] MEDS: MULTIVITAMINS/MINERALS THERAPEUTIC TAB PO SCH (08:27)
--- NOTE | 2017-03-31 11:12 | HHI.PR ---
Subjective Remarks in no acute distress. pain seems to be controlled. had a BM earlier today. no dizziness or sob. Objective Vitals Vital Signs Date Time Temp Pulse Resp B/P (MAP) Pulse Ox O2 Delivery O2 Flow Rate FiO2 03/31/17 08:00 98.5 86 18 115/61 (79) 96 03/31/17 04:20 96.9 74 18 116/75 (89) 94 03/31/17 00:51 98.4 84 16 118/64 94 03/30/17 21:58 98.6 83 16 121/61 94 03/30/17 21:43 99.5 80 18 122/67 95 03/30/17 21:25 96.7 81 16 113/59 (77) 96 03/30/17 16:36 97.7 104 18 119/63 (81) 97 03/30/17 12:06 97.5 88 17 107/56 (73) 94 I/O 03/30/17 03/30/17 03/30/17 03/31/17 03/31/17 03/31/17 07:00 15:00 23:00 07:00 15:00 23:00 Intake Total 700 ml 1200 ml 805 ml Output Total 500 ml 2450 ml 450 ml Balance 200 ml -1250 ml 355 ml Intake Oral 700 ml 1200 ml 480 ml Packed Cells 325 ml Output Urine Total 500 ml 2450 ml 450 ml # Bowel Movements 0 0 Result Diagram: 03/31/17 0723 03/30/17 0701 Imaging Last Impressions Chest X-Ray 03/27/17 1105 Signed Impressions: Service Date/Time: Monday, March 27, 2017 12:04 - CONCLUSION: No acute cardiopulmonary abnormality is identified. Mark Floyd MD Hip and Pelvis X-Ray 03/27/17 0000 Signed Impressions: Service Date/Time: Monday, March 27, 2017 12:04 - CONCLUSION: There is a displaced spiral fracture of the distal femoral diaphysis. The proximal aspect of the fracture is approximately 13 mm distal to the femoral side plate. Mark Floyd MD Head CT 03/27/17 0000 Signed Impressions: Service Date/Time: Monday, March 27, 2017 11:36 - CONCLUSION: Negative trauma study. Vasquez Flaherty MD Femur X-Ray 03/27/17 0000 Signed Impressions: Service Date/Time: Monday, March 27, 2017 18:29 - CONCLUSION: Status post ORIF of right femur fracture with hardware in good position. Pj Merchant MD Objective Remarks GENERAL: This is a well-nourished, well-developed patient, in no apparent distress. CARDIOVASCULAR: Regular rate and regular rhythm without murmurs, gallops, or rubs. RESPIRATORY: Clear to auscultation. Breath sounds equal bilaterally. No wheezes , rales, or rhonchi. GASTROINTESTINAL: Abdomen soft, non-tender, nondistended. Normal, active bowel sounds MUSCULOSKELETAL: Extremities without clubbing, cyanosis, or edema. NEURO: Alert & Oriented x4 to person, place, time, situation. Moves all ext x4 Procedures Status post right femur ORIF/IMN on 03/27/17 Medications and IVs Inpatient Medications Acetaminophen (Tylenol) 650 mg Q4H PRN PO FEVER; Start 03/27/17 at 14:15 Acetaminophen/ Hydrocodone Bitart ([place] 10-325 Mg) 2 tab Q6H PRN PO PAIN GREATER THAN/EQUAL TO 5 Last administered on 03/29/17at 14:16; Start 03/27/17 at 19 :00 Albuterol/ Ipratropium (Duoneb Neb) 1 ampule Q4HR NEB PRN NEB SOB/cough; Start 03/29/17 at 14:30 Amlodipine Besylate (Norvasc) 10 mg DAILY PO Last administered on 03/31/17at 08: 26; Start 03/28/17 at 09:00 Atorvastatin Calcium (Lipitor) 40 mg DAILY PO Last administered on 03/31/17at 08: 27; Start 03/28/17 at 09:00 Bisacodyl (Dulcolax Supp) 10 mg DAILY PRN RECTAL UNTIL BOWEL MOVEMENT Last administered on 03/31/17at 06:09; Start 03/30/17 at 17:00 Bupropion HCl (Wellbutrin Sr) 150 mg BID PO Last administered on 03/31/17at 08:26 ; Start 03/28/17 at 09:00 Bupropion HCl (Wellbutrin Xl 24 Hr) 150 mg DAILY PO ; Start 03/28/17 at 09:00; Stop 03/28/17 at 09:00; Status DC Cefazolin Sodium 1000 mg/Sodium Chloride 100 ml @ 200 mls/hr Q8H IV Last administered on 03/28/17at 20:57; Start 03/28/17 at 04:00; Stop 03/28/17 at 20:29; Status DC Cholecalciferol (Vitamin D3) 5,000 units DAILY PO Last administered on at 08:27; Start 03/28/17 at 09:00 Dextrose (D50w (Vial) Inj) 50 ml UNSCH PRN IV PUSH HYPOGLYCEMIA-SEE COMMENTS; Start 03/27/17 at 14:00 Dextrose/Sodium Chloride 1,000 ml @ 100 mls/hr Q10H IV ; Start 03/27/17 at 18:59 ; Stop 03/27/17 at 21:29; Status DC Diphenhydramine HCl (Benadryl) 25 mg Q6H PRN PO ITCHING; Start 03/27/17 at 19:00 Duloxetine HCl (Cymbalta Dr) 90 mg DAILY PO ; Start 03/28/17 at 09:00; Stop at 09:00; Status DC Enoxaparin Sodium (Lovenox Inj) 40 mg Q24H SQ Last administered on 03/30/17 18: 29; Start 03/28/17 at 19:00; Stop 04/06/17 at 19:01 EZETIMIBE (Zetia) 10 mg DAILY PO Last administered on 03/31/17 08:27; Start 03/28/17 at 09:00 Glucagon (Glucagon Inj) 1 mg UNSCH PRN OTHER HYPOGLYCEMIA-SEE COMMENTS; Start 03/27/17 at 14:00 Guaifenesin (Mucinex Er) 600 mg BID PO Last administered on 03/31/17at 08:27; Start 03/29/17 at 21:00 Hydrochlorothiazide (Hydrodiuril) 25 mg DAILY PO Last administered on 03/31/17at 08:26; Start 03/29/17 at 09:00 Hydromorphone HCl (Dilaudid Pf Inj) 1 mg ONCE ONCE IV PUSH Last administered on 03/27/17at 13:27; Start 03/27/17 at 13:30; Stop 03/27/17 at 13:31; Status DC Insulin Aspart (NovoLOG SUPPLEMENTAL SCALE) 1 ACHS SLIDING SCALE SQ Last administered on 03/30/17at 11:27; Start 03/27/17 at 17:00 Magnesium Hydroxide (Milk Of Magnandrea Liq) 10 ml Q12H PRN PO CONSTIPATION Last administered on 03/30/17at 18:28; Start 03/27/17 at 19:00 Miscellaneous Information ALL NURSING DEPARTME... UNSCH PRN .XX SEE LABEL COMMENTS; Start 03/27/17 at 20:02; Stop 03/28/17 at 20:01; Status DC Miscellaneous Information (Post-op Orders (for Pharmacy)) STAT ONCE XX ; Start 03/27/17 at 19:00; Stop 03/27/17 at 20:05; Status DC Miscellaneous Medication ([facility] Pharmacy Information) ONCE ONCE XX ; Start 03/27 at 19:00; Stop 03/27/17 at 19:17; Status DC Morphine Sulfate (Morphine Inj) 2 mg Q4H PRN IV PUSH PAIN 1-10; Start 03/27/17 at 14:15; Stop 03/27/17 at 19:12; Status DC Multivitamins/ Minerals Therapeutic (Theragran M Tab) 1 tab DAILY PO Last administered on 03/31/17at 08:27; Start 03/28/17 at 09:00 Naloxone HCl (Narcan Inj) 0.4 mg UNSCH PRN IV PUSH RESPIRATORY RATE LESS THAN 10; Start 03/27/17 at 19:00 Ondansetron HCl (Zofran Inj) 4 mg Q4H PRN IVP NAUSEA OR VOMITING; Start at 19:00 Pneumococcal Polyvalent Vaccine (Pneumovax-23 Inj) 25 mcg ONCE ONCE IM ; Start 03/29/17 at 10:00; Stop 03/29/17 at 10:01; Status DC Senna/Docusate Sodium (Vivi-Colace) 1 tab BID PO Last administered on 03/31/17at 08:27; Start 03/27/17 at 21:00 Sodium Chloride 1,000 ml @ 100 mls/hr Q10H IV Last administered on 03/29/17at 14 :00; Start 03/27/17 at 22:00 Sodium Chloride (NS Flush) 2 ml UNSCH PRN IVF FLUSH AFTER USING IV ACCESS Last administered on 03/27/17at 22:13; Start 03/27/17 at 11:15 Tamsulosin HCl (Flomax) 0.4 mg HS PO Last administered on 03/30/17at 19:56; Start 03/27/17 at 21:00 Valsartan (Diovan) 160 mg DAILY PO Last administered on 03/31/17at 08:26; Start 03/29/17 at 09:00 A/P Problem List: (1) Closed right femoral fracture ICD Code: S72.91XA - Unspecified fracture of right femur, initial encounter for closed fracture Status: Acute (2) Diabetes mellitus ICD Code: E11.9 - Type 2 diabetes mellitus without complications (3) Hypertension ICD Code: I10 - Essential (primary) hypertension Assessment and Plan Femur Fracture Orthopedics consulted, recommendations appreciated Status post right femur ORIF/IMN Pain controlled at this time Continue current pain management Continue Bulb drain Continue Lovenox PT/OT anemia- post-op with further drop in H/H transfused with PRBC- H/H improved. Hypertension: Continue amlodipine Continue valsartan/HCTZ Type 2 diabetes Sliding scale per protocol Hold metformin due to renal insufficiency. Renal insufficiency chronic kidney disease stage 2-3 A.m. labs Try to avoid nephrotoxins Obesity Weight loss recommended Physical therapy and occupational therapy. Discharge Planning dc to SNF today. see med list. f/u; pcp and ortho. d/w the patient and case management. time spent 35 min. Problem Qualifiers (1) Closed right femoral fracture: Qualified Codes: S72.341A - Displaced spiral fracture of shaft of right femur, initial encounter for closed fracture Gucci Isaac MD Mar 31, 2017 11:12
[2017-03-31 12:00] VITALS: BP 115/60; PULSE 76; RESP 18; TEMP 98.5; O2SAT 96
[2017-03-31] MEDS: SODIUM CHLOR 0.9% 1000 ML INJ 1,000 ML IV SCH (16:00)
[2017-03-31] MEDS ORDERED: calcium complete PO (17:42)
[2017-04-07] MEDS ORDERED: FOLDING REACHER1 MIS (15:43)
[2017-04-07] MEDS ORDERED: COMMODE 3-IN-11 MIS (15:43)
[2017-04-07] MEDS ORDERED: GETGO ROLLING W1 MI1 (15:43)
[2017-04-07] MEDS ORDERED: WHEEMIS3 (15:43)
[2017-04-07] MEDS ORDERED: TRANSFER BENCH1 MIS (15:43)
[2017-04-07] MEDS ORDERED: [UNRECOGNIZED DRUG - OTHER] (15:47)
[2017-04-07] MEDS ORDERED: [UNRECOGNIZED DRUG - OTHER] (15:47)
--- NOTE | 2017-04-08 13:50 | PQ ---
Physician Query Response Document PATIENT: DONI FRANKS : 1950 ADMIT DATE: 03/27/2017 1:53 PM DISCH DATE: 03/31/2017 4:47 PM RESPONDING PROVIDER #: [email or web address] QUERY TEXT: Anemia Type Anemia is documented in the Medical Record. Please specify the cause (includes suspected or probable cause) Such as: -- Due to acute blood loss/postoperative acute -- Due to chronic blood loss -- Due to iron deficiency -- Due to postoperative blood loss/not acute -- Due to chronic disease -- Other, please specify The patient's Clinical Indicators include: Dr. Isaac, you have documented "postoperative anemia". Patient was transfused 1 unit of PRBC for fall of H PLEASE REVIEW THE QUESTION BELOW AND ANSWER TO THE BEST OF YOUR ABILITY THANK YOU Query created by: Guillermo Robertson on 04/02/2017 10:58 AM RESPONSE TEXT: Anemia- acute- post-op Electronically signed by: Gucci Isaac MD 04/08/2017 1:46 PM
== END 2017-03-31 16:47 | DRG 481 ==
LOC: NEPE 10:43 → NEDA 13:53 → N06B 21:46
PROVIDERS: ADMIT Internal Medicine; ATTEND Internal Medicine
PROC: 0QP804Z Removal of Internal Fixation Device from Right Femoral Shaft, Open Approach (ICD-10-PCS; 2017-03-27)
PROC: 30233N1 Transfusion of Nonautologous Red Blood Cells into Peripheral Vein, Percutaneous Approach (ICD-10-PCS; 2017-03-27)
PROC: 0QSB06Z Reposition Right Lower Femur with Intramedullary Internal Fixation Device, Open Approach (ICD-10-PCS; principal; 2017-03-27 16:06)
DX: S72.451A Displaced supracondylar fracture without intracondylar extension of lower end of right femur, initial encounter for closed fracture (principal); D62 Acute posthemorrhagic anemia; Z68.41 Body mass index [BMI] 40.0-44.9, adult; E11.22 Type 2 diabetes mellitus with diabetic chronic kidney disease; N18.3 Chronic kidney disease, stage 3 (moderate); W01.0XXA Fall on same level from slipping, tripping and stumbling without subsequent striking against object, initial encounter; Y93.E5 Activity, floor mopping and cleaning; Y92.009 Unspecified place in unspecified non-institutional (private) residence as the place of occurrence of the external cause; I12.9 Hypertensive chronic kidney disease with stage 1 through stage 4 chronic kidney disease, or unspecified chronic kidney disease; Z79.84 Long term (current) use of oral hypoglycemic drugs; E66.01 Morbid (severe) obesity due to excess calories; E78.00 Pure hypercholesterolemia, unspecified; I45.10 Unspecified right bundle-branch block
CPT/HCPCS: 36430; 70450; 71045; 73502; 73552; 76000; 80048; 80053; 82948; 83036; 83735; 84100; 84439; 84443; 85014; 85018; 85025; 85610; 85730; 86850; 86900; 86901; 86920; 93005; 94150; 96374; 96375; C1713; C1769; J0131; J0330; J0690; J1100; J1170; J1580; J1650; J1815; J2250; J2270; J2370; J2405; J3010; J3370; J7030; P9016; P9045